=== PATIENT | female | born 1985 | race Caucasian/White ===

== ENCOUNTER 2017-10-23 09:45 | Outpatient (CLI) | payer OTHER ==
[2017-10-23 11:11] LABS: HGB - HEMOGLOBIN 11.3 g/dL (12.0-16.0); MEAN CORPUSCULAR HEMOGLOBIN 30.4 pg (27.0-31.0); MEAN CORPUSCULAR HGB CONC 34.3 g/dL (32.0-36.0); MEAN CORPUSCULAR VOLUME 88.6 fL (81.0-99.0); MEAN PLATELET VOLUME 8.2 fL (7.9-10.8); RED BLOOD COUNT 3.71 10^6/uL (4.20-5.40); RED CELL DISTRIBUTION WIDTH 12.7 % (12.0-15.0); WHITE BLOOD COUNT 16.1 x10^3/uL (4.8-10.8)
== END 2017-10-23 09:46 | disposition home or self-care (01) ==
LOC: LAB 09:45
PROVIDERS: ATTEND Obstetrics & Gynecology
DX: Z34.90 Encounter for supervision of normal pregnancy, unspecified, unspecified trimester (principal); Z34.81 Encounter for supervision of other normal pregnancy, first trimester
CPT/HCPCS: 36415; 82950; 86850; 86900; 86901

== ENCOUNTER 2017-10-24 12:15 | Outpatient (CLI) | payer OTHER ==
--- NOTE | 2017-10-24 17:52 | Ultrasound Report ---
ANATOMIC SCREEN: 10/24/2017 No comparison. INDICATION: Anatomic screening. TECHNIQUE: OB ultrasound single intrauterine transabdominal approach. FINDINGS: Estimated gestational age by patient stated LMP, 27 weeks 4 days with ANDRE 01/19/2018. Estimated gestational age via current ultrasound, 26 weeks 5 days with ANDRE 01/25/2018. Cardiac activity 149 beats per minute. movement is visualized. Presentation cephalic. Placental position anterior without previa. Three-vessel cord with central insertion on the placenta. Amniotic fluid index 9.8. BPD: 6.6 cm, 26 weeks 5 days. HC: 24.3 cm, 26 weeks 3 days. AC: 23.0, 27 weeks 3 days. FL: 4.8 cm, 26 weeks 3 days. Estimated weight 997 grams, 39th percentile. The face and right ventricular outflow tract are not well seen on this exam. There is a thin band of tissue about the posterior neck which is nonspecific. The wrists also remain flexed during the exam. No other anomalies are demonstrated. The uterus and maternal adnexa appear unremarkable in other regards. However, there is fluid versus a mucus plug in the cervix. It is somewhat reassuring that the cervix remains 4.3 cm. IMPRESSION: 1. SINGLE INTRAUTERINE WITH ESTIMATED AGE 26 WEEKS 5 DAYS BY TODAY'S ULTRASOUND. 2. THERE IS QUESTIONABLE FLUID IN THE CERVIX. RECOMMEND CLINICAL EXAMINATION TO EXCLUDE AMNIOTIC FLUID. 3. QUESTIONABLE ANATOMIC ANOMALIES. RECOMMEND MATERNAL MEDICINE CONSULT. NOTE: These findings were discussed in detail with Dr. Ansari on the day of the examination, 10/24/2017 at 3:30 p.m., and he expressed understanding. TD: 10/24/2017 17:51 [facility]
== END 2017-10-24 12:16 | disposition home or self-care (01) ==
LOC: DI 12:15
PROVIDERS: ATTEND Obstetrics & Gynecology
DX: Z36.9 Encounter for antenatal screening, unspecified (principal); Z3A.26 26 weeks gestation of pregnancy
CPT/HCPCS: 76811

== ENCOUNTER 2017-11-25 10:17 | Outpatient (CLI) | payer OTHER ==
[2017-11-25 17:02] LABS: BILIRUBIN,URINE NEGATIVE (NEGATIVE); CLARITY,URINE SL. CLOUDY (CLEAR); GLUCOSE, URINE (UA) NEGATIVE (NEGATIVE); KETONES,URINE (UA) NEGATIVE (NEGATIVE); LEUKOCYTE ESTERASE, URINE LARGE (NEGATIVE); NITRITE,URINE NEGATIVE (NEGATIVE); OCCULT BLOOD,URINE TRACE-LYSE (NEGATIVE); PROTEIN,URINE NEGATIVE (NEGATIVE); UROBILINOGEN,URINE 0.2 (NORMAL) E.U./dL (NORMAL)
[2017-11-25 17:27] LABS: AMORPHOUS SEDIMENT,UR Few /LPF; BACTERIA,URINE Few /HPF (None Seen); RBC,URINE 0-5 /HPF (0-5); SQUAMOUS EPITHELIAL CELL,UR RARE Squamous (<= Few)
== END 2017-11-25 10:18 | disposition home or self-care (01) ==
LOC: LAB.R 10:17
PROVIDERS: ATTEND Obstetrics & Gynecology
DX: R82.99 Other abnormal findings in urine (principal)
CPT/HCPCS: 81001; 87086

== ENCOUNTER 2017-12-08 08:39 | Outpatient (CLI) | END 2017-12-08 08:40 | disposition home or self-care (01) ==

== ENCOUNTER 2017-12-12 08:00 | Outpatient (CLI) | payer OTHER | END 2017-12-12 08:01 | disposition home or self-care (01) | LOC: LAB.R 08:00 | PROVIDERS: ATTEND Obstetrics & Gynecology | DX: N76.0 Acute vaginitis (principal) | CPT/HCPCS: 87480; 87510; 87660 ==

== ENCOUNTER 2017-12-25 08:00 | Outpatient (CLI) | payer OTHER | END 2017-12-25 08:01 | disposition home or self-care (01) | LOC: LAB.R 08:00 | PROVIDERS: ATTEND Obstetrics & Gynecology | DX: Z36.89 Encounter for other specified antenatal screening (principal) | CPT/HCPCS: 87081 ==

== ENCOUNTER 2018-01-05 09:26 | Outpatient (CLI) | payer OTHER ==
--- NOTE | 2018-01-05 14:45 | Ultrasound Report ---
Procedure Date: 01/05/2018 Accession Number: [id number] / [id number] Procedure: US - OB F/U or Repeat CPT Code: FULL RESULT: EXAM: OB F/U or Repeat DATE: 01/05/2018 10:37 AM CLINICAL HISTORY: ENCTR FOR SCREENING FOR GROWTH RET TECHNIQUE: Real-time scanning was performed with manufacturer representative static images obtained. COMPARISON: None Reported last menstrual period is April 14. Clinical Age: 37 weeks 1 days US Age: 38 weeks 0 days EFW Hadlock: 3369 grams EFW % Hadlock: 62% Heart Rate: 159 bpm EDC: 01/25/2018 US EDC: 01/19/2018 BPD Hadlock: 38 weeks 1 days; Mean mm 94 HC Hadlock: 38 weeks 4 days; Mean mm 337 AC Hadlock: 38 weeks 0 days; Mean mm 341 FL Hadlock: 37 weeks 4 days; Mean mm 74 Presentation: Cephalic Placental Location: Anterior Cervical Length: 3.0 cm Amniotic Fluid: EDUARDO 12.2 cm; MVP 4.7 cm FINDINGS: There is a single live intrauterine gestation in cephalic presentation with an anterior placenta and no evidence of previa. heart rate is 159 beats per minutes. The sonographic age based on today's exam is 38 weeks and 0 days. The estimated weight by Hadlock is 3369 g, 62nd percentile. IMPRESSION: Single viable intrauterine gestation with expected growth.
== END 2018-01-05 09:27 | disposition home or self-care (01) ==
LOC: DI 09:26
PROVIDERS: ATTEND Obstetrics & Gynecology
DX: Z36.4 Encounter for antenatal screening for fetal growth retardation (principal)
CPT/HCPCS: 76816

== ENCOUNTER 2018-01-24 09:45 | Inpatient (IN) | payer OTHER ==
[2018-01-24] MEDS ORDERED: fentaNYL 100 MCG/2 ML VIAL IVP PRN (12:50)
[2018-01-24] MEDS ORDERED: ONDANSETRON 4 MG/2 ML VIAL IVP PRN ×2 (12:50→21:16)
[2018-01-24] MEDS ORDERED: SODIUM CHLORIDE FLUSH 0.9% 10 ML SYRINGE IVP PRN (12:50)
[2018-01-24] MEDS ORDERED: PENICILLIN G POTASSIUM 5,000,000 UNIT in SODIUM CHLORIDE 0.9% MINIBAG 100 ML IV ONE (13:30)
[2018-01-24] MEDS: SODIUM CHLORIDE FLUSH 0.9% 10 ML SYRINGE IVP SCH ×3 (13:53→20:58)
[2018-01-24] MEDS: LACTATED RINGERS 1,000 ML IV SCH ×2 (13:54→20:22)
[2018-01-24 14:01] LABS: BASOPHILS # (AUTO) 0.1 10^3/uL (0.0-0.1); BASOPHILS % (AUTO) 0.6 %; EOSINOPHILS # (AUTO) 0.1 10^3/uL (0.0-0.7); EOSINOPHILS % (AUTO) 0.5 %; HGB - HEMOGLOBIN 12.8 g/dL (12.0-16.0); LYMPHOCYTES # (AUTO) 1.6 10^3/uL (1.5-3.5); LYMPHOCYTES % (AUTO) 8.4 %; MEAN CORPUSCULAR HEMOGLOBIN 29.8 pg (27.0-31.0); MEAN CORPUSCULAR HGB CONC 34.9 g/dL (32.0-36.0); MEAN CORPUSCULAR VOLUME 85.5 fL (81.0-99.0); MEAN PLATELET VOLUME 9.4 fL (7.9-10.8); MONOCYTES # (AUTO) 1.1 10^3/uL (0.0-1.0); MONOCYTES % (AUTO) 5.9 %; NEUTROPHILS # (AUTO) 16.1 10^3/uL (1.5-6.6); NEUTROPHILS % (AUTO) 84.6 %; PLT - PLATELET COUNT 253 10^3/uL (130-450); RED BLOOD COUNT 4.29 10^6/uL (4.20-5.40); RED CELL DISTRIBUTION WIDTH 13.5 % (12.0-15.0)
[2018-01-24 14:19] LABS: RBC MORPHOLOGY (MULTIPLE) 1+ ANISOCYTOSIS (NORMAL)
[2018-01-24] MEDS ORDERED: OXYTOCIN/SODIUM CHLORIDE 500 ML IV SCH (17:00)
[2018-01-24] MEDS: PENICILLIN G POTASSIUM 2,500,000 UNIT in SODIUM CHLORIDE 0.9% 100ML 100 ML IV SCH ×2 (17:03→21:17)
--- NOTE | 2018-01-24 17:13 | PROVIDER PROGRESS NOTE ---
Labor Progress Note - Uterine Monitoring Uterine Monitoring Mode: positive: External toco Contraction Frequency (min/apart): 4-6 min Contraction Intensity: positive: Moderate Uterine Resting Tone: positive: Soft - Monitoring Monitor Mode: positive: External ultrasound Heart Rate Baseline: 130-40 Heart Rate Variability: positive: Moderate (6-25 bmp) Accelerations: positive: Present, 15x15 Decelerations: positive: Early Strip Review: positive: Category I - Vaginal Exam Dilation (in cm): 6 Effacement (%): 100% Station: -1 Cervical Position: Midposition - Labor Progress Note Labor Progress Note/Additional Text: Pt is progressing well. GBS positive receiving second dose of PCN. will AROM when PCN in. will hold Pit as she is making excellent progress.
--- NOTE | 2018-01-24 17:18 | HISTORY & PHYSICAL EXAMINATION ---
Admit History - Instructions [place]/Slash: -Left hand click circles element as positive or present. -Right hand click slashes element as negative or not present. - Visit Reason Visit Reason: Contractions - : 1 Parity: 0 Premature: 0 Ectopic: 0 : 0 Care: positive: [facility] (Transfer from [facility] at about 19.1 weeks), CORNELL- Whndbe Risk/History: positive: None Complications This : positive: None Smoking Status: Never smoker - Mother's Labs Mother's Blood Type: positive: O Mother's RH: positive: Positive GBS: positive: Group B Strep Positive Rubella Status: positive: Non-immune Review of Systems - Constitutional Constitutional: denies: Fatigue - Eyes Eyes: denies: Pain - Ears, Nose & Throat Ears, Nose & Throat: denies: Ear pain - Cardiovascular Cariovascular: denies: Irregular heart rate - Respiratory Respiratory: denies: Cough - Gastrointestinal Gastrointestinal: denies: Abdominal pain - Genitourinary Genitourinary: denies: Dysuria - Musculoskeletal Musculoskeletal: denies: Muscle pain - Integumentary Integumentary: denies: Rash - Neurological Neurological: denies: General weakness - Psychiatric Psychiatric: denies: Depression - Endocrine Endocrine: denies: Polyuria Physical - Abdominal Exam Vital Signs: Temp Pulse Resp BP Pulse Ox 36.8 C 98 20 125/80 100 01/24/18 13:00 01/24/18 13:00 01/24/18 13:00 01/24/18 13:00 01/24/18 13:00 Contraction Intensity: positive: Moderate Uterine Resting Tone: positive: Soft - Monitoring Strip Review: positive: Category I - Presentation Presentation: positive: Vertex - Vaginal Exam Membranes: positive: Membranes intact Dilation (in cm): 3 on admission Station: positive: -2 Cervical Position: positive: Posterior (Pt was initaly 2 cm walked for 2 hours) Plan for Labor - Plan For Labor I expect patient to be DC'd or transferred within 96 hours.: Yes Plan for Labor: Pt is a 32 yo EDC 01/19/2018, 40.5 weeks. GBS positive Rhubella nonimmune in labor. will give two doses of PCM then AROM.
--- NOTE | 2018-01-24 18:19 | PROVIDER PROGRESS NOTE ---
Labor Progress Note - Uterine Monitoring Uterine Monitoring Mode: positive: External toco Contraction Frequency (min/apart): 5-6 Contraction Intensity: positive: Strong Uterine Resting Tone: positive: Soft - Monitoring Monitor Mode: positive: External ultrasound Heart Rate Baseline: 150 Heart Rate Variability: positive: Moderate (6-25 bmp) Accelerations: positive: Present, 15x15 (Responded to amniohook) Decelerations: positive: Early Strip Review: positive: Category I - Vaginal Exam Dilation (in cm): 7 Effacement (%): 100% Station: -1 - Labor Progress Note Labor Progress Note/Additional Text: Attempted AROM. head well applied and thus minimal fluid. pt may have epidural PRN.
[2018-01-24] MEDS ORDERED: fent/BUPIV 2 MCG/0.125% 250 ML EP ONE (20:00)
[2018-01-24] MEDS ORDERED: NALBUPHINE 10 MG/ML AMP IVP PRN (21:16)
[2018-01-24] MEDS ORDERED: fent/BUPIV 2 MCG/0.125% 250 ML EP PRN (21:16)
[2018-01-24] MEDS ORDERED: LACTATED RINGERS 500 ML IV ONE (21:16)
[2018-01-24] MEDS ORDERED: NALOXONE 0.4 MG/ML VIAL IVP PRN (21:16)
[2018-01-24] MEDS ORDERED: ePHEDrine 50 MG/ML VIAL IVP PRN (21:16)
[2018-01-24] MEDS ORDERED: METOCLOPRAMIDE 10 MG/2 ML VIAL IVP PRN (21:16)
[2018-01-24] MEDS ORDERED: diphenhydrAMINE INJ 50 MG/ML VIAL IVP PRN (21:16)
[2018-01-25] MEDS: LACTATED RINGERS 1,000 ML IV SCH (01:23)
[2018-01-25] MEDS: PENICILLIN G POTASSIUM 2,500,000 UNIT in SODIUM CHLORIDE 0.9% 100ML 100 ML IV SCH (01:24)
[2018-01-25] MEDS ORDERED: LIDOCAINE 1% 50 ML MDV ONE (01:56)
--- NOTE | 2018-01-25 02:46 | DELIVERY NOTE ---
Delivery Note - Labor Labor: positive: Spontaneous, Augmented by oxytocin - Delivery Method Delivery Method: positive: Spontaneous vaginal delivery - Presentation Presentation: positive: Vertex, WAI - right occiput anterior - Nuchal Cord Nuchal Cord: positive: None - Anesthetic Anesthetic Type: Anesthetic: positive: Lidocaine - 1% plain Volume: positive: Other (10 ml) - Amniotic Fluid Description Amniotic Fluid Description: positive: Clear - Episiotomy Type Episiotomy Type: positive: None - Laceration Laceration: positive: 2nd degree - Suture Suture Type: positive: Vicryl Suture Size: positive: 3-0 - Delivery Outcome Delivery Outcome: positive: Livebirth - : positive: Placed in direct skin contact with mother, Bulb syringe, Stimulated, Mead used sex: positive: Female - Cord Cord: positive: 3 vessels - Placenta Placenta: positive: Intact, Spontaneous - Estimated Blood Loss Estimated Blood Loss (in cc): 150 - Post Delivery Events Post Delivery Events: positive: No post delivery events - Delivery Comments (Free Text/Narrative) Delivery Comments (Free Text/Narrative): Pt started with Nitrous for analgesia switched to Epidural for labor, reached complete at 2223. Allowed to labor down and started pushing at 0013. Following a 1 hour 58 min second stage a live female was delivered at 0211 over a second degree midline laceration. Baby was placed on mothers chest and stimulated. Talita had apgars of 9/10 and weighed 6 lb 12 oz. Placenta followed at 0217 inspected and noted to be complete. Repare was effected with local and 3-0 vicril. EBL 150 ml.
[2018-01-25] MEDS ORDERED: HYDROCORTISONE/PRAMOXINE 10 GM PR PRN (02:53)
[2018-01-25] MEDS ORDERED: ACETAMINOPHEN 325 MG TABLET PO PRN (02:53)
[2018-01-25] MEDS ORDERED: WITCH HAZEL/GLYCERIN 1 EACH MED..PAD TOP PRN (02:53)
[2018-01-25] MEDS ORDERED: HYDROCORTISONE 1% CREAM 28 GM TUBE PR PRN (02:53)
[2018-01-25] MEDS ORDERED: diphenhydrAMINE 25 MG CAPSULE PO PRN (02:53)
[2018-01-25] MEDS ORDERED: OXYTOCIN/SODIUM CHLORIDE 250 ML IV ONE (02:53)
[2018-01-25] MEDS ORDERED: MEASLES,MUMPS & RUBELLA VACC 0.5 ML VIAL SUBQ ONE (02:53)
[2018-01-25] MEDS ORDERED: oxyCODONE 5 MG TABLET PO PRN (02:53)
[2018-01-25] MEDS ORDERED: LACTATED RINGERS 1,000 ML IV SCH (03:00)
[2018-01-25] MEDS: IBUPROFEN 800 MG TABLET PO SCH ×4 (03:18→21:41)
--- NOTE | 2018-01-25 15:02 | PROVIDER PROGRESS NOTE ---
Subjective - Prog Note Date Prog Note Date: 01/25/18 Prog Note Time: 15:01 - Subjective Pt reports feeling: Improved (Pain 0/10. voiding and regular diet. Breast feeding) Objective - Vital Signs/Intake & Output Reviewed Vital Signs: Yes Vital Signs: Vital Signs x48h Temp Pulse Resp BP Pulse Ox 01/25/18 10:00 36.3 C L 74 20 120/75 100 01/25/18 08:00 36.8 C 68 18 104/65 100 Intake & Output: Intake & Output 01/22/18 01/23/18 01/24/18 01/25/18 23:59 23:59 23:59 23:59 Intake Total 592.5 3650 Output Total 300 350 Balance 292.5 3300 - Objective General Appearance: positive: No acute distress, Alert Respiratory: positive: Chest non-tender, No respiratory distress, Breath sounds nml Cardiovascular: positive: Regular rate & rhythm, No murmur, No gallop Abdomen: positive: Non-tender, No organomegaly, Mass (U-1). negative: Tenderness Extremities: negative: Calf tenderness, Archana's sign/cords Neurologic/Psychiatric: positive: Oriented x3, Mood/affect nml - Lab Results Fish Bones: 01/24/18 13:55 Assessment/Plan - Problem List (1) (spontaneous vaginal delivery) Impression: less than 24 hours. Progressing well.
[2018-01-26] MEDS: IBUPROFEN 800 MG TABLET PO SCH ×4 (02:51→21:50)
--- NOTE | 2018-01-26 14:44 | PROVIDER PROGRESS NOTE ---
Subjective - Prog Note Date Prog Note Date: 01/26/18 Prog Note Time: 14:41 - Subjective Pt reports feeling: Improved (Pain 0/10, voiding, breast feeding.) Objective - Vital Signs/Intake & Output Reviewed Vital Signs: Yes Vital Signs: Vital Signs x48h Temp Pulse Pulse Resp BP Pulse Ox 01/26/18 11:27 36.7 C 73 18 116/69 99 01/26/18 07:45 36.8 C 74 18 117/69 99 Intake & Output: Intake & Output 01/23/18 01/24/18 01/25/18 01/26/18 23:59 23:59 23:59 23:59 Intake Total 592.5 4350 360 Output Total 300 350 Balance 292.5 4000 360 - Objective General Appearance: positive: No acute distress, Alert Abdomen: positive: Non-tender, No distention, Mass (u-2) - Lab Results Fish Bones: 01/24/18 13:55 Assessment/Plan - Problem List (1) (spontaneous vaginal delivery) Impression: PPD # 1 progressing Continue care
[2018-01-27] MEDS: IBUPROFEN 800 MG TABLET PO SCH ×3 (04:51→16:28)
[2018-01-27] MEDS: SODIUM CHLORIDE FLUSH 0.9% 10 ML SYRINGE IVP SCH ×2 (07:43→10:44)
--- NOTE | 2018-01-27 09:14 | Discharge Plan ---
Discharge Plan Disposition: 01 Home, Self Care Condition: Good Diet: Regular Activity Restrictions: Activity as Tolerated Shower Restrictions: No Driving Restrictions: No Weight Bearing: Full Weight No Smoking: If you smoke, Please STOP! Call for help. Follow-up with: Marvel Argueta MD [Provider Admit Priv/Credential] -
--- NOTE | 2018-01-27 09:17 | PROVIDER PROGRESS NOTE ---
Subjective - Prog Note Date Prog Note Date: 01/27/18 Prog Note Time: 09:00 - Subjective Pt reports feeling: Improved Subjective: Morning discharge visit patient feels well and is nursing without difficulty. There is no problems with peroneal stitches. She micturates and defecates well. Mild non-foul lochia. Physical examination finds the fundus firm and nontender. Reviewed warning sign and callback instructions including fever, excessive bleeding, calf pain, and abdominal pain outside of contractions. She will be seen by Dr. Duron in 2 weeks. Discharge medications [id number] Motrin Complete discharge summary dictated Objective - Vital Signs/Intake & Output Vital Signs: Vital Signs x48h Temp Pulse Resp BP Pulse Ox 01/27/18 05:13 97.9 F 62 16 115/73 100 Intake & Output: Intake & Output 01/24/18 01/25/18 01/26/18 01/27/18 23:59 23:59 23:59 23:59 Intake Total 592.5 4350 360 Output Total 300 350 Balance 292.5 4000 360 - Lab Results Fish Bones: 01/24/18 13:55
--- NOTE | 2018-01-27 10:37 | DISCHARGE SUMMARY ---
Physician: Marvel Ansari MD DATE OF ADMISSION: 01/24/2018 DATE OF DISCHARGE: 01/27/2018 DIAGNOSIS: Term , active labor. PROCEDURE: Normal vaginal delivery of a living female (Dr. Argueta). HISTORY OF PRESENT ILLNESS: The patient is a 32-year-old primigravida who received care at [facility]. Blood type is O positive, antibody negative, GBS positive, rubella nonimmune, who presented in labor with a category 1 strip. Initial evaluation found her to be 3 cm, -2 station and posterior. Refer Dr. Argueta's H&P. HOSPITAL COURSE: Patient was admitted, and GBS antibiotic protocol was started. She smoothly progressed to completion at 2023 hours, and delivered at 0211 hours on 01/26/2018. A living female was born, weighing 6 pounds 12 ounces with Apgars of 9/9. There was a minor midline second-degree laceration and was uneventfully closed. Total blood loss was [address] Argueta' s notes. The patient rested and recovered. She received MMR vaccine. RhoGAM was not needed. Greater than two doses of penicillin were given. On the morning of day #1, the patient felt well. She had normal activity. She desired discharge. There was no difficulty with nursing noted. She was discharged home with instructions and warning sign and callback. Throughout the hospital course, the patient did well on Motrin alone, and did not require any narcotics. FOLLOWUP: Followup will be in [address] Argueta. DISCHARGE MEDICATIONS 1. vitamins and iron. 2. [id number] Motrin for pain. TD: 01/27/2018 09:18 [facility]
[2018-01-27 15:57] VITALS: BP 126/75
[2018-01-27] MEDS ORDERED: MEASLES,MUMPS & RUBELLA VACC 0.5 ML VIAL SUBQ ONE (20:00)
--- NOTE | 2018-01-28 23:32 | Labor Flowsheet ---
Labor Flowsheet Datetime Report Generated by CPN: 01/27/2018 20:28 Datetime: 01/27/2018 15:37 VITAL SIGNS NBP Sys/Kelin/Mean (mmHg): 126 : 75 : 83 Pulse: 75 Datetime: 01/26/2018 18:24 SpO2 (%): 100 Datetime: 01/25/2018 02:17 Stage of : Datetime: 01/25/2018 02:11 UTERINE ACTIVITY Monitor Mode: External Frequency (min): 2-4 Quality: Strong Duration (sec): 50-100 Pattern: Normal: <= 5 Contractions in 10 Minutes Resting Tone (Palpate): Relaxed ASSESSMENT A Monitor Mode: Telemetry FHR Baseline Rate : 135 Variability: Moderate 6-25 bpm Accelerations: 15X15 Decelerations: Early; Variable Category: Category II Datetime: 01/25/2018 02:09 LaborFlag: Labor Datetime: 01/25/2018 01:26 MEDICATIONS Antibiotics: Penicillin IV (Units) @ 2.5M Datetime: 01/25/2018 00:37 Temperature (C): 37.6 Datetime: 01/25/2018 00:20 COMMUNICATION Communication: Provider at Bedside Notification Reason: Status; Labor Status Communication Comments: Dr. Giem here Datetime: 01/24/2018 23:32 Pain Presence: None/Denies Datetime: 01/24/2018 23:29 Patient Position/Activity: Right Lateral Patient Care Comments: pillows between legs Datetime: 01/24/2018 23:25 Hygiene: Monique Care; Underpad Changed; Peripad Changed Datetime: 01/24/2018 23:20 I/O Interventions: Straight Cath (ml) @ 300 Datetime: 01/24/2018 23:00 Oxygen Amount (LPM): 10 Oxygen Method: Non-Rebreather Datetime: 01/24/2018 22:36 Provider Notified (Name): Dr Giem Datetime: 01/24/2018 22:33 VAGINAL EXAM Dilatation (cm): 10.0 Effacement (%): 100 Station: 0 Exam by: O'Phillips RN and Spear RNC Vaginal Bleeding: Normal Show Cervix, Consistency: Soft Datetime: 01/24/2018 21:10 Anesthesia Level Check: T8- Ribs Datetime: 01/24/2018 20:58 PAIN Pain Scale: 0 Datetime: 01/24/2018 20:51 Epidural Procedure Other: Single Dose Datetime: 01/24/2018 20:48 Epidural Procedure: Test Dose Anesthesia Comments: bolus Datetime: 01/24/2018 20:25 PROCEDURE TIME OUT Procedure Verify: Correct Patient Position ANESTHESIA Anesthesia Plans: Epidural Epidural Positioning: Sitting Datetime: 01/24/2018 20:20 Medication Comments: Nitrous off Datetime: 01/24/2018 20:12 Monitor Interventions for UA: [place] Adjusted Datetime: 01/24/2018 19:53 Vaginal Exam Comments: 2 cm anterior lip Datetime: 01/24/2018 19:32 Nausea/Vomiting: Present Datetime: 01/24/2018 19:29 Pain Type: Cramping; Contraction Pain Location: Abdomen Pain Coping: Breathing Through Contractions Pain Assessment Comments: using nitrous MATERNAL ASSESSMENT Level of Consciousness: Fully Conscious Headache: Denies RUQ Epigastric Pain: Denies Comfort Measures: Breathing/Relaxation Datetime: 01/24/2018 19:27 Respirations: 16 Datetime: 01/24/2018 18:29 Pain Relief Measures: Comfort Measures Datetime: 01/24/2018 18:15 Membrane Status: Ruptured Membranes Rupture Method: Artificial Amniotic Fluid Color: Clear Amniotic Fluid Amount: Scant Amniotic Fluid Odor: Normal Membrane Comments: AROM of scant fluid Datetime: 01/24/2018 17:38 Contraction Comments: pt gettimg good relief with nitrous oxide breathing Datetime: 01/24/2018 17:01 Cervix, Position: Anterior Datetime: 01/24/2018 14:10 Membranes Ruptured Date/Time: 01/24/2018 18:15 Datetime: 01/24/2018 14:05 Pain Goal: 9 Datetime: 01/24/2018 13:55 PATIENT CARE IV/Blood Work: New IV Bag Hung; IV Bag Number @
== END 2018-01-27 18:45 | disposition home or self-care (01) | DRG 775 ==
LOC: WFO 09:45 → FBP 09:46 → WFO 12:39 → UNDOADMOB 12:40 → FBP 12:40 → INTOOBSV 12:50 → OBSVTOIN 12:50 → FBP 17:00 → OBSVTOIN 17:00
PROVIDERS: ADMIT Obstetrics & Gynecology; ATTEND Obstetrics & Gynecology
PROC: 10E0XZZ Delivery of Products of Conception, External Approach (ICD-10-PCS; principal; 2018-01-25)
PROC: 0KQM0ZZ Repair Perineum Muscle, Open Approach (ICD-10-PCS; 2018-01-25)
PROC: 10907ZC Drainage of Amniotic Fluid, Therapeutic from Products of Conception, Via Natural or Artificial Opening (ICD-10-PCS; 2018-01-25)
PROC: 3E033VJ Introduction of Other Hormone into Peripheral Vein, Percutaneous Approach (ICD-10-PCS; 2018-01-25)
DX: O99.824 Streptococcus B carrier state complicating childbirth (principal); Z37.0 Single live birth; O70.1 Second degree perineal laceration during delivery; Z3A.40 40 weeks gestation of pregnancy; Z23 Encounter for immunization
CPT/HCPCS: 36415; 85025; 96361; 96365; 99213

== ENCOUNTER 2020-09-07 07:42 | Outpatient (CLI) | payer OTHER ==
[2020-09-07 09:06] LABS: HCT - HEMATOCRIT 34.6 % (37.0-47.0); HGB - HEMOGLOBIN 11.5 g/dL (12.0-16.0); MEAN CORPUSCULAR HEMOGLOBIN 30.3 pg (27.0-31.0); MEAN CORPUSCULAR HGB CONC 33.2 g/dL (32.0-36.0); MEAN CORPUSCULAR VOLUME 91.3 fL (81.0-99.0); MEAN PLATELET VOLUME 9.7 fL (7.9-10.8); RED BLOOD COUNT 3.79 10^6/uL (4.20-5.40); RED CELL DISTRIBUTION WIDTH 12.8 % (12.0-15.0); WHITE BLOOD COUNT 11.5 x10^3/uL (4.8-10.8)
== END 2020-09-07 07:43 | disposition home or self-care (01) ==
LOC: LAB 07:42
PROVIDERS: ATTEND Advanced Practice Midwife
DX: Z34.90 Encounter for supervision of normal pregnancy, unspecified, unspecified trimester (principal); Z36.89 Encounter for other specified antenatal screening
CPT/HCPCS: 36415; 82950; 85027; 86850

== ENCOUNTER 2020-10-30 11:46 | Outpatient (CLI) | payer OTHER ==
[2020-10-30 13:38] LABS: BILIRUBIN,URINE NEGATIVE (NEGATIVE); GLUCOSE, URINE (UA) NEGATIVE (NEGATIVE); KETONES,URINE (UA) 15 mg/dL (NEGATIVE); LEUKOCYTE ESTERASE, URINE NEGATIVE (NEGATIVE); NITRITE,URINE NEGATIVE (NEGATIVE); OCCULT BLOOD,URINE NEGATIVE (NEGATIVE); PROTEIN,URINE NEGATIVE (NEGATIVE); UROBILINOGEN,URINE 0.2 (NORMAL) E.U./dL (NORMAL)
[2020-10-30 13:48] VITALS: BP 124/72
[2020-10-30 13:50] LABS: CLARITY,URINE CLEAR (CLEAR)
[2020-10-30 13:59] LABS: RBC,URINE 0-5 /HPF (0-5); WBC,URINE 0-3 /HPF (0-5)
[2020-10-30 14:00] LABS: BACTERIA,URINE Rare /HPF (None Seen); SQUAMOUS EPITHELIAL CELL,UR RARE Squamous (<= Few)
--- NOTE | 2020-10-30 20:28 | PROVIDER PROGRESS NOTE ---
- HPI Chief Complaint: Labor Current : Current EDU 10/30/20 Gestation 33 Weeks and 9 Days 2 Para 1 Vital Signs Temperature 97.5 F L 10/30/20 12:24 Heart Rate 85 10/30/20 12:24 Respiratory Rate 18 10/30/20 12:24 Blood Pressure 124/72 10/30/20 12:24 Temperature 97.5 F L 10/30/20 12:24 Heart Rate 85 10/30/20 12:24 Respiratory Rate 18 10/30/20 12:24 Blood Pressure 124/72 10/30/20 12:24 O2 Saturation - Exam GEN: NAD HEAD: NCAT EYES: No scleral icterus or conjunctival injection CV: RRR RESP: CTAB, normal effort ABD: gravid, S&NT/ND PSYCH: appropriate affect NEURO: alert and oriented, normal gait and coordination EXT: WWP SVE: closed/long/high on RN exam EFM: 135 mod jason 15x15 accels no decels TOCO: irritable - Procedures OB Procedure Performed: NST Diagnosis/Indication for NST: labor NST Procedure: EFM 135 mod jason 15x15 accesl no decels--. Cat I, RRNST Service Date of procedure: 10/30/20 Procedure Details: Patient is a 35 yo at 33+9 wga here with pelvic pain Reports pain across her pubic bone, non-rhythmic. No contraction felt in back of abdomen. No LOF or VB. Does not recall feeling symptoms with prior . No Dysuria. No recent IC. [place] in [employer] ROS: As per HPI, otherwise remaining systems are negative. PMH: none PSH: wisdom teeth extraction, cyst removal from neck OB HX: x1 FH: Mother with thyroid disorder Brother: DM GM: breast cancer EXAM: See above A/P: Pelvic pain in UA wnl FFN neg SVE reassuring Low concern for labor Low concern for UTI Likely pubic symphacitis Recommend use of belly band to relieve pressure on pubic bone FU with routine PNC DX: IUP at 33+9 wga False labor Pubic symphasitis
== END 2020-10-30 14:15 | disposition home or self-care (01) ==
LOC: WFO 11:46 → FBP 11:48 → WFO 14:15
PROVIDERS: ATTEND Nurse Practitioner Obstetrics & Gynecology
DX: O47.03 False labor before 37 completed weeks of gestation, third trimester (principal); O99.891 Other specified diseases and conditions complicating pregnancy; M25.80 Other specified joint disorders, unspecified joint; Z3A.33 33 weeks gestation of pregnancy
CPT/HCPCS: 36415; 81001; 81003; 82731; 87086; 87491; 87591; 87661; 87797; 87801; 99214

== ENCOUNTER 2020-11-23 08:00 | Outpatient (CLI) | payer OTHER | END 2020-11-23 23:59 | disposition home or self-care (01) | LOC: LAB.WC 08:00 | PROVIDERS: ATTEND Obstetrics & Gynecology | DX: Z36.85 Encounter for antenatal screening for Streptococcus B (principal) | CPT/HCPCS: 87797 ==

== ENCOUNTER 2020-12-08 09:56 | Outpatient (CLI) | payer OTHER ==
[2020-12-08 10:23] VITALS: BP 125/77
[2020-12-08 10:53] LABS: RUPTURE OF MEMBRANES PLUS POSITIVE (NEGATIVE)
--- NOTE | 2020-12-08 11:43 | PROVIDER PROGRESS NOTE ---
- HPI Chief Complaint: Leakage of vaginal fluid Current : Current EDU 12/12/20 Gestation 39 Weeks and 3 Days 2 Para 1 Vital Signs Temperature 98.3 F 12/08/20 10:20 Heart Rate 101 H 12/08/20 10:20 Respiratory Rate 18 12/08/20 10:20 Blood Pressure 125/77 12/08/20 10:20 O2 Saturation 98 12/08/20 10:20 Temperature 98.3 F 12/08/20 10:20 Heart Rate 101 H 12/08/20 10:20 Respiratory Rate 18 12/08/20 10:20 Blood Pressure 125/77 12/08/20 10:20 O2 Saturation 98 12/08/20 10:20 35yo at 39 3/7 weeks. Patient awoke this am and had wetness on her underwear. Patient reports good movement. Patient is feeling irregular contractions since last evening. Patient denies vaginal bleeding. Patient is not aware of any gushes of fluid or fluid coming out of the vagina. - Exam O- 127/77., temp is 98.7 Chest: Clear to auscultation. Good breath sounds in all [place]. Heart: RRR without murmur or gallop. Abdomen: Soft, gravid, non-tender to palpation. Extremities: No edema, no calf tenderness. Sterile speculum exam. V/V: No lesions, no erythema, some white discharge is present. Cervical mucous is seen. No pooling of fluid. Some very small amount of fluid seen and sampled and placed on two separate slides for evaluation. CX: Loose 1cn/50%/-3, Soft, Posterior. Monitor/NST: Baseline 140 with moderate variability. Accelerations are present. 15X15 present. Irregular contractions are present. Patient is not feeling all contractions. No decelerations are present. Initially heart rate baseline was 150-160 and patient given oral hydration. heart rate decreased to baseline of 140. Category I Monitor strip. Meets criteria for reactive NST. Rom plus was positive. Sterile speculum exam performed to collect samples for ferning. No ferning seen on either of the two slides prepared. A-IUP 39 3/7 with Intact membranes. P- Discharge to home with Labor precautions. Follow-up in clinic as scheduled next week if she does not go into labor. - Plan Plan: Discharge to home with labor precautions.
== END 2020-12-08 11:36 | disposition home or self-care (01) ==
LOC: WFO 09:56 → FBP 09:57 → WFO 11:36
PROVIDERS: ATTEND Obstetrics & Gynecology
DX: Z34.83 Encounter for supervision of other normal pregnancy, third trimester (principal); Z3A.39 39 weeks gestation of pregnancy
CPT/HCPCS: 84112; 99214

== ENCOUNTER 2021-12-20 22:27 | Emergency (ER) | payer OTHER ==
[2021-12-21 02:06] LABS: RAPID STREP SCREEN Negative (Negative)
--- NOTE | 2021-12-21 02:11 | ED Physician Documentation ---
History of Present Illness - Stated complaint Stated Complaint: RASH,BODY ACHES,SORE THROAT - Chief complaint Chief Complaint: Heent - History obtained from History obtained from: Patient - Additonal information Additional information: Patient is a 36-year-old female with no significant past medical history presenting for evaluation of rash, sore throat and body aches that been present since yesterday. Her is also ill with a viral syndrome And he was seen earlier today in the emergency department with a negative COVID test. 2 young daughters are also ill and accompany her as patient's during today's evaluation with upper respiratory infection symptoms. They have recently started daycare a week ago. Patient reports noticing a rash to palms and soles that Feels achy, she has 1 lesion in her mouth and reports feeling a sore throat and body aches. She has not used Motrin or Tylenol. She has not taken a COVID test. She denies cough, trouble breathing, abdominal symptoms. Review of Systems Constitutional: reports: Myalgias. denies: Fever Nose: denies: Congestion Throat: reports: Sore throat Cardiac: denies: Chest pain / pressure, Palpitations Respiratory: denies: Dyspnea GI: denies: Abdominal Pain, Vomiting : denies: Dysuria Skin: reports: Rash Musculoskeletal: denies: Back pain Neurologic: denies: Headache PD PAST MEDICAL HISTORY - Past Medical History Past Medical History: No - Past Surgical History Past Surgical History: No - Allergies Allergies/Adverse Reactions: Allergies Allergy/AdvReac Type Severity Reaction Status Date / Time No Known Drug Allergies Allergy Verified 01/24/18 21:27 - Social History Does the pt smoke?: No Smoking Status: Never smoker Does the pt drink ETOH?: No Does the pt have substance abuse?: No - Immunizations Immunizations are current?: Yes - POLST Patient has POLST: No PD ED PE NORMAL - General General: Alert and oriented X 3, No acute distress, Well developed/nourished - HEENT HEENT: Atraumatic, PERRL, EOMI, Moist mucous membranes, Pharynx benign (No oral swelling or exudate) - Neck Neck: Supple, no meningeal sign - Cardiac Cardiac: RRR, No murmur, Strong equal pulses - Respiratory Respiratory: No respiratory distress, Clear bilaterally - Abdomen Abdomen: Normal bowel sounds, Soft, Non tender, Non distended - Derm Derm: Other (Maculopapular rash to bilateral palms, no vesicles,). No: No rash - Extremities Extremities: No edema - Neuro Neuro: Normal speech - Psych Psych: Normal mood PD ED PE EXPANDED - HEENT HEENT Visual: 1 - deformity (Shallow ulceration) Results - Vitals Vitals: Vital Signs - 24 hr 12/20/21 12/21/21 22:46 02:19 Temperature 36.3 C L 36.5 C Heart Rate 94 80 Respiratory 16 16 Rate Blood Pressure 121/88 H 123/66 O2 Saturation 99 98 Oxygen O2 Source Room air - Labs Labs: Laboratory Tests 12/21/21 12/21/21 01:40 01:40 Nasal Adenovirus (PCR) NOT DETECTED Nasal B. parapertussis DNA (PCR) NOT DETECTED Nasal Coronavir 229E PCR NOT DETECTED Nasal Coronavir HKU1 PCR NOT DETECTED Nasal Coronavir NL63 PCR NOT DETECTED Nasal Coronavir OC43 PCR NOT DETECTED Nasal Enterovir/Rhinovir PCR DETECTED A Nasal Influenza B PCR NOT DETECTED Nasal Influenza A PCR NOT DETECTED Nasal Parainfluen 1 PCR NOT DETECTED Nasal Parainfluen 2 PCR NOT DETECTED Nasal Parainfluen 3 PCR NOT DETECTED Nasal Parainfluen 4 PCR NOT DETECTED Nasal RSV (PCR) NOT DETECTED Nasal B.pertussis DNA PCR NOT DETECTED Nasal C.pneumoniae (PCR) NOT DETECTED [place] Human Metapneumo PCR NOT DETECTED Nasal M.pneumoniae (PCR) NOT DETECTED Nasal SARS-CoV-2 (PCR) NOT DETECTED Group A Strep Rapid Negative PD MEDICAL DECISION MAKING - ED course ED course: Patient presenting with body aches, sore throat and an abnormal rash. Suspect viral etiology as both daughters are with her as patient's and was seen earlier today also with viral illness. She is well-appearing, nontoxic.Concern for sgbi-[id number]-yrf-mouth disease given appearance of rash on hands and oral l esions seen.Strep test is negative. Respiratory panel is pending. Discussed continuing supportive care as well as strict return precautions. Vital signs stable. Departure - Departure Disposition: 01 Home, Self Care Clinical Impression: Hand, foot and mouth disease Condition: Stable Instructions: ED Hand Foot Mouth Disease Ch Comments: You were evaluated for sore throat, abnormal rash and body aches. Based on the appearance of the rash I believe you have hand-foot mouth Disease. While more common in children, adults can get this and it is highly contagious. It is caused by a virus. Treatment is supportive and consists of Motrin or Tylenol as needed for fever or pain, hydration and rest. I would expect it to get better in the next 7 to 10 days. We have also done a strep swab which is negative. We will send the swab for culture. Respiratory panel is also pending which checks for COVID, influenza and a number of other common cold strains. If you have any labored breathing, difficulty swallowing or any concerns return to the emergency department. You have a Covid test pending. You need to self quarantine until the result is done and negative. Do not leave your house. Do not get near anybody. The results should be done in 48 to 72 hours. We will call with a positive result, the fastest way to get a negative result for confirmation though is to go to the hospital website at [email or web address], click on the my [facility] tab and sign up for the patient portal. If any friends or family get sick and would like to have a Covid test done, but do not have signs or symptoms that would necessitate being hospitalized, there are multiple local options for Covid testing. [facility] keeps an updated list of testing and vaccination options at: [email or web address]. Discharge Date/Time: 12/21/21 02:19
[2021-12-21 02:20] VITALS: BP 123/66
[2021-12-21 03:37] LABS: B. PARAPERTUSSIS- RESP PCR PAN NOT DETECTED; B. PERTUSSIS- RESP PCR PANEL NOT DETECTED; C. PNEUMONIAE- RESP PCR PANEL NOT DETECTED; CORONAVIRUS 229E-RESP PCR NOT DETECTED; CORONAVIRUS HKU1-RESP PCR NOT DETECTED; CORONAVIRUS NL63-RESP PCR NOT DETECTED; CORONAVIRUS OC43-RESP PCR NOT DETECTED; HUMAN METAPNEUMOVIRUS NOT DETECTED; INFLUENZA A- RESP PCR PANEL NOT DETECTED; INFLUENZA B - RESP PCR PANEL NOT DETECTED; M. PNEUMONIAE- RESP PCR PANEL NOT DETECTED; PARAINFLUENZA VIRUS 1 NOT DETECTED; PARAINFLUENZA VIRUS 2 NOT DETECTED; PARAINFLUENZA VIRUS 3 NOT DETECTED; PARAINFLUENZA VIRUS 4 NOT DETECTED; RHINOVIRUS/ENTEROVIRUS DETECTED; RSV- RESP PCR PANEL NOT DETECTED; SARS-CoV-2 -RESP PCR PANEL NOT DETECTED
== END 2021-12-21 02:19 | disposition home or self-care (01) ==
LOC: ED 22:27
DX: B08.4 Enteroviral vesicular stomatitis with exanthem (principal); Z20.822 Contact with and (suspected) exposure to COVID-19
CPT/HCPCS: 87070; 87430; 87633; 99282; 99283

== ENCOUNTER 2023-02-24 08:00 | Outpatient (CLI) | payer OTHER ==
[2023-02-24 16:23] LABS: BILIRUBIN,URINE NEGATIVE (NEGATIVE); GLUCOSE, URINE (UA) NEGATIVE (NEGATIVE); KETONES,URINE (UA) NEGATIVE (NEGATIVE); LEUKOCYTE ESTERASE, URINE TRACE (NEGATIVE); NITRITE,URINE NEGATIVE (NEGATIVE); OCCULT BLOOD,URINE NEGATIVE (NEGATIVE); PH,URINE 6.5 PH (5.0-7.5); PROTEIN,URINE NEGATIVE (NEGATIVE); UROBILINOGEN,URINE 0.2 (NORMAL) E.U./dL (NORMAL)
[2023-02-24 16:26] LABS: CLARITY,URINE CLEAR (CLEAR)
[2023-02-24 16:27] LABS: BACTERIA,URINE None Seen /HPF (None Seen); RBC,URINE 0-5 /HPF (0-5); SQUAMOUS EPITHELIAL CELL,UR RARE Squamous (<= Few); WBC,URINE 0-3 /HPF (0-5)
== END 2023-02-24 23:59 | disposition home or self-care (01) ==
LOC: LAB.WC 08:00
PROVIDERS: ATTEND Nurse Practitioner
DX: Z34.90 Encounter for supervision of normal pregnancy, unspecified, unspecified trimester (principal)
CPT/HCPCS: 81001; 87086

== ENCOUNTER 2023-05-20 07:20 | Outpatient (CLI) | payer OTHER ==
--- NOTE | 2023-05-20 15:41 | Ultrasound Report ---
PROCEDURE: OB Detailed Eval INDICATIONS: SUPERVISION OF OUTSIDE/PRIOR DATING DATA: Last menstrual period (LMP): Unknown. LMP-based estimated date of delivery (ANDRE): Unknown. First dating scan (date and location): 03/03/2023. Estimated date of delivery (ANDRE) from first dating scan: 10/05/2023. The below data below was generated using the ultrasound ANDRE of 10/05/2023 TECHNIQUE: Real-time scanning was performed of the fetus, with image documentation and biometric measurements. COMPARISON: 03/03/2023 FINDINGS: General: A single living intrauterine gestation is present. Presentation: Vertex Placenta: Placental position is anterior, without previa. Amniotic fluid index: 12.3 cm, within normal limits for gestational age. heart rate: 143 beats per minute. Maternal cervical canal: 4.3 cm long; normal length is 2.5 cm or more. biometrics: Biparietal diameter: 4.7 cm 20 weeks 1 day 45th percentile Head circumference: 17.5 cm 20 weeks 0 days 31st percentile Abdominal circumference: 14.9 cm 20 weeks 1 day 44th percentile Femur length: 3.3 cm 20 weeks 1 day 38th percentile Estimated gestational age from initial scan: 20 weeks 2 days Composite gestational age from present scan: 20 weeks 1 day Estimated weight and percentile: 336 g 79th percentile Measurement variability in biometric dating: +/- 10 days from 12-20 weeks gestation, +/- 2 weeks from 20-30 weeks gestation, +/- 3 weeks at 30 weeks gestation or later. Anatomic survey: Neuro: Ventricles are normal at less than 10 mm. Cisterna magna is normal at 3-11 mm. Cerebellum i s normal in size and morphology. Nuchal skin fold: Normal at less than 6 mm between 14 and 20 weeks gestational age. Face: Nose and lips, facial profile are normal. Spine: No evidence for spina bifida. Heart: 4-chambered heart is present, with normal ventricular outflow tracts. Diaphragm: Diaphragm is intact. Stomach: Left-sided stomach is present. Kidneys: No hydronephrosis. Normal is less than 5 mm in 2nd trimester, less than 7 mm in 3rd trimester. Cord: 3 vessel cord has orthotopic insertion. Bladder: Normal in size. Extremities: All 4 extremities are visualized. IMPRESSION: Single live intrauterine with ultrasound gestational age of 20 weeks 1 day. Anatomy is within normal limits. Reviewed by: Arabella Gay MD on 05/20/2023 3:40 PM PST Approved by: Arabella Gay MD on 05/20/2023 3:40 PM PST Station ID: [id number]
== END 2023-05-20 07:21 | disposition home or self-care (01) ==
LOC: DI 07:20
PROVIDERS: ATTEND Obstetrics & Gynecology
DX: Z34.92 Encounter for supervision of normal pregnancy, unspecified, second trimester (principal)

== ENCOUNTER 2023-07-10 08:00 | Outpatient (CLI) | payer OTHER ==
[2023-07-10 19:05] LABS: BACTERIAL VAGINOSIS DNA NEGATIVE (NEGATIVE); CANDIDA GLABRATA DNA NEGATIVE (NEGATIVE); CANDIDA GROUP DNA POSITIVE (NEGATIVE); CANDIDA KRUSEI DNA NEGATIVE (NEGATIVE); TRICHOMONAS VAGINALIS DNA NEGATIVE (NEGATIVE)
== END 2023-07-10 23:59 | disposition home or self-care (01) ==
LOC: LAB.WC 08:00
PROVIDERS: ATTEND Nurse Practitioner
DX: N89.8 Other specified noninflammatory disorders of vagina (principal)
CPT/HCPCS: 81514

== ENCOUNTER 2023-07-11 06:20 | Emergency (ER) | payer OTHER ==
--- NOTE | 2023-07-11 07:53 | ED Physician Documentation ---
PD HPI URI - Stated complaint Stated Complaint: CONGESTION/CHILLS - Chief complaint Chief Complaint: General - History obtained from History obtained from: Patient - Additional information Additional information: Patient is a 38-year-old female who is approximately 27 weeks presenting for evaluation of body aches, fatigue, nonproductive cough since yesterday afternoon. Patient's 5-year-old daughter is here with similar symptoms. Patient's had similar symptoms earlier this week and was diagnosed with influenza A. Patient states she is feeling her baby move. No vaginal bleeding or discharge. No cramping.Her OB is [facility]. She denies any complications with this . She is taking prenatals. She reports associated nausea. Review of Systems Constitutional: reports: Myalgias Nose: reports: Congestion Respiratory: reports: Cough GI: reports: Nausea. denies: Abdominal Pain : denies: Dysuria PD PAST MEDICAL HISTORY - Past Surgical History Past Surgical History: No - Present Medications Home Medications: Ambulatory Orders Medication Instructions Recorded Confirmed Pnv No.95/Ferrous Fum/Folic AC 1 tab PO DAILY 07/11/23 07/11/23 [ Tablet] - Allergies Allergies/Adverse Reactions: Allergies Allergy/AdvReac Type Severity Reaction Status Date / Time No Known Drug Allergies Allergy Verified 07/11/23 06:41 - Social History Does the pt smoke?: No Smoking Status: Never smoker Does the pt drink ETOH?: No Does the pt have substance abuse?: No - Immunizations Immunizations are current?: Yes - POLST Patient has POLST: No PD ED PE NORMAL - General General: Alert and oriented X 3, No acute distress, Well developed/nourished - HEENT HEENT: Atraumatic, Moist mucous membranes, Pharynx benign - Neck Neck: Supple, no meningeal sign - Cardiac Cardiac: RRR, Strong equal pulses - Respiratory Respiratory: No respiratory distress, Clear bilaterally - Abdomen Abdomen: Normal bowel sounds, Soft, Non tender, Other (Gravid uterus above umbilicus) - Derm Derm: Warm and dry - Neuro Neuro: Normal speech Results - Vitals Vitals: Vital Signs - 24 hr 07/11/23 08:10 Temperature 37.1 C Heart Rate 81 Respiratory 16 Rate Blood Pressure 118/70 O2 Saturation 100 Oxygen O2 Source Room air - Labs Labs: Laboratory Tests 07/11/23 07:37 Nasal Adenovirus (PCR) NOT DETECTED Nasal B. parapertussis DNA (PCR) NOT DETECTED Nasal Coronavir 229E PCR NOT DETECTED Nasal Coronavir HKU1 PCR NOT DETECTED Nasal Coronavir NL63 PCR NOT DETECTED Nasal Coronavir OC43 PCR NOT DETECTED Nasal Enterovir/Rhinovir PCR NOT DETECTED Nasal Influ A H1 2009 PCR DETECTED A Nasal Influenza B PCR NOT DETECTED Nasal Parainfluen 1 PCR NOT DETECTED Nasal Parainfluen 2 PCR NOT DETECTED Nasal Parainfluen 3 PCR NOT DETECTED Nasal Parainfluen 4 PCR NOT DETECTED Nasal RSV (PCR) NOT DETECTED Nasal B.pertussis DNA PCR NOT DETECTED Nasal C.pneumoniae (PCR) NOT DETECTED [place] Human Metapneumo PCR NOT DETECTED Nasal M.pneumoniae (PCR) NOT DETECTED Nasal SARS-CoV-2 (PCR) NOT DETECTED PD Medical Decision Making - ED course ED course: Patient is a 38-year-old female who is approximately 27 weeks presenting for evaluation of flulike symptoms. She has known exposure in the household with her testing positive for flu earlier this week. Her daughter is also being evaluated here today with similar symptoms. I also suspect the flu in this patient. She is and heart tones are within Expected range.She has no symptoms to suggest precipitous labor. I discussed that her symptoms are likely related to influenza. Because she is , I did offer Tamiflu and explained that could be considered a high risk condition. I explained the risks and benefits of Tamiflu.She does not want to take this at this time. I encouraged her to reach out to her OB to discuss further as that may make her feel more comfortable. Respiratory swab was obtained at her request. She is counseled on continued supportive care as well as concerning symptoms to return for. Departure - Departure Disposition: 01 Home, Self Care Clinical Impression: Flu-like symptoms, at greater than 3 months gestation Condition: Stable Instructions: ED Flu Follow-Up: [facility] [Provider Group] Comments: Your respiratory panel is pending. This will check for COVID, influenza, RSV and a number of other common cold viruses. We will notify you if it is positive for COVID. Otherwise you can check the patient portal for your results. You should quarantine from others until you know your COVID result. Please continue with acetaminophen or ibuprofen as needed for fevers and body aches, plenty of fluids/hydration and rest. Return to the ER with any worsening symptoms such as difficulty breathing or vomiting. I did offer a medication called Tamiflu today which is indicated in patients that are . I would recommend reaching out to your OB today to discuss this medication further to see if you would then be comfortable in taking it. Forms: PCP List, Activity restrictions Discharge Date/Time: 07/11/23 08:20
[2023-07-11 08:15] VITALS: BP 118/70; O2SAT 100
[2023-07-11 08:44] LABS: B. PARAPERTUSSIS- RESP PCR PAN NOT DETECTED; B. PERTUSSIS- RESP PCR PANEL NOT DETECTED; C. PNEUMONIAE- RESP PCR PANEL NOT DETECTED; CORONAVIRUS 229E-RESP PCR NOT DETECTED; CORONAVIRUS HKU1-RESP PCR NOT DETECTED; CORONAVIRUS NL63-RESP PCR NOT DETECTED; CORONAVIRUS OC43-RESP PCR NOT DETECTED; HUMAN METAPNEUMOVIRUS NOT DETECTED; INFLUENZA A H1 2009- RESP PCR DETECTED; INFLUENZA B - RESP PCR PANEL NOT DETECTED; M. PNEUMONIAE- RESP PCR PANEL NOT DETECTED; PARAINFLUENZA VIRUS 1 NOT DETECTED; PARAINFLUENZA VIRUS 2 NOT DETECTED; PARAINFLUENZA VIRUS 3 NOT DETECTED; PARAINFLUENZA VIRUS 4 NOT DETECTED; RHINOVIRUS/ENTEROVIRUS NOT DETECTED; RSV- RESP PCR PANEL NOT DETECTED; SARS-CoV-2 -RESP PCR PANEL NOT DETECTED
== END 2023-07-11 08:20 | disposition home or self-care (01) ==
LOC: ED 06:20
DX: O26.892 Other specified pregnancy related conditions, second trimester (principal); R09.81 Nasal congestion; R05.9 Cough, unspecified; Z3A.27 27 weeks gestation of pregnancy
CPT/HCPCS: 87633; 99283

== ENCOUNTER 2023-07-17 08:05 | Outpatient (CLI) | payer OTHER ==
[2023-07-17 12:14] LABS: HCT - HEMATOCRIT 31.6 % (37.0-47.0); HGB - HEMOGLOBIN 10.2 g/dL (12.0-16.0); MEAN CORPUSCULAR HEMOGLOBIN 28.9 pg (27.0-31.0); MEAN CORPUSCULAR HGB CONC 32.3 g/dL (32.0-36.0); MEAN CORPUSCULAR VOLUME 89.5 fL (81.0-99.0); MEAN PLATELET VOLUME 10.5 fL (7.9-10.8); RED BLOOD COUNT 3.53 10^6/uL (4.20-5.40); RED CELL DISTRIBUTION WIDTH 13.1 % (12.0-15.0); WHITE BLOOD COUNT 10.5 x10^3/uL (4.8-10.8)
== END 2023-07-17 08:06 | disposition home or self-care (01) ==
LOC: LAB.N 08:05
PROVIDERS: ATTEND Obstetrics & Gynecology
DX: Z34.90 Encounter for supervision of normal pregnancy, unspecified, unspecified trimester (principal); Z36.89 Encounter for other specified antenatal screening
CPT/HCPCS: 36415; 82950; 85027

== ENCOUNTER 2023-07-24 08:20 | Outpatient (CLI) | payer OTHER ==
[2023-07-24 08:54] LABS: GTT GLUCOSE,FASTING 83 mg/dL (74-109)
== END 2023-07-24 08:21 | disposition home or self-care (01) ==
LOC: LAB 08:20
PROVIDERS: ATTEND Obstetrics & Gynecology
DX: O99.810 Abnormal glucose complicating pregnancy (principal)
CPT/HCPCS: 36415; 82951; 82952

== ENCOUNTER 2023-08-22 07:12 | Outpatient (CLI) | payer OTHER ==
[2023-08-22 07:33] VITALS: BP 98/72
[2023-08-22 08:13] LABS: BASOPHILS # (AUTO) 0.1 10^3/uL (0.0-0.1); BASOPHILS % (AUTO) 0.6 %; EOSINOPHILS # (AUTO) 0.2 10^3/uL (0.0-0.7); EOSINOPHILS % (AUTO) 1.7 %; HCT - HEMATOCRIT 34.2 % (37.0-47.0); HGB - HEMOGLOBIN 11.3 g/dL (12.0-16.0); LYMPHOCYTES # (AUTO) 1.6 10^3/uL (1.5-3.5); LYMPHOCYTES % (AUTO) 14.6 %; MEAN CORPUSCULAR HEMOGLOBIN 28.3 pg (27.0-31.0); MEAN CORPUSCULAR VOLUME 85.7 fL (81.0-99.0); MEAN PLATELET VOLUME 9.9 fL (7.9-10.8); MONOCYTES # (AUTO) 0.6 10^3/uL (0.0-1.0); MONOCYTES % (AUTO) 5.7 %; NEUTROPHILS % (AUTO) 75.5 %; PLT - PLATELET COUNT 227 10^3/uL (130-450); RED BLOOD COUNT 3.99 10^6/uL (4.20-5.40); RED CELL DISTRIBUTION WIDTH 13.5 % (12.0-15.0); WHITE BLOOD COUNT 10.6 x10^3/uL (4.8-10.8)
--- NOTE | 2023-08-22 08:29 | PROVIDER PROGRESS NOTE ---
- HPI Chief Complaint: GI symptoms Current : Vital Signs Temperature 97.9 F 08/22/23 07:25 Heart Rate 103 H 08/22/23 07:25 Respiratory Rate 16 08/22/23 07:25 Blood Pressure 98/72 08/22/23 07:25 Temperature 97.9 F 08/22/23 07:25 Heart Rate 103 H 08/22/23 07:25 Respiratory Rate 16 08/22/23 07:25 Blood Pressure 98/72 08/22/23 07:25 O2 Saturation If not protocol: Oxygen Flow, liters/minute - Procedures OB Procedure Performed: NST Diagnosis/Indication for NST: Other (false labor) - Plan Plan: Patient is a 38-year-old -0-0-2 at 33 weeks 5 days gestation presenting after an episode of diarrhea this morning. She has not had any since. She had some significant cramping around that time and is worried it was contractions. She also complains of recent discharge. She used [id number] Monistat for several days and for like it took care of symptoms but they returned. She also concerned that she may have lost her mucous plug. Physical Exam Constitutional: alert, no acute distress, well hydrated, well developed, well nourished, appropriate dress. Cardiovascular: Regular rate and rhythm. Respiratory: no respiratory distress. Abdomen: nondistended, nontender, no guarding. Psych: affect and mood appropriate, normal interaction, good eye contact. SVE: 0/0/-3 FHT: 135 bpm baseline, moderate variability, accelerations present, no decelerations. Reactive NST [place]: Quiescent Diarrhea -Discussed symptomatic management. Nonconstrictive urine. Likely not dehydrated. -Good hand hygiene and try not to spread to anyone else. If does not return, can have normal activity. False labor -Abdominal cramps likely from gastrointestinal issues rather than labor. Cervix is closed. Not aly on monitor.
[2023-08-22 09:13] LABS: BILIRUBIN,URINE NEGATIVE (NEGATIVE); GLUCOSE, URINE (UA) NEGATIVE (NEGATIVE); KETONES,URINE (UA) NEGATIVE (NEGATIVE); LEUKOCYTE ESTERASE, URINE MODERATE (NEGATIVE); NITRITE,URINE NEGATIVE (NEGATIVE); OCCULT BLOOD,URINE NEGATIVE (NEGATIVE); PH,URINE 6.5 PH (5.0-7.5); PROTEIN,URINE NEGATIVE (NEGATIVE); UROBILINOGEN,URINE 0.2 (NORMAL) E.U./dL (NORMAL)
[2023-08-22 09:16] LABS: CLARITY,URINE HAZY (CLEAR)
[2023-08-22 09:19] LABS: BACTERIA,URINE Few /HPF (None Seen); RBC,URINE 0-5 /HPF (0-5); SQUAMOUS EPITHELIAL CELL,UR MOD Squamous (<= Few)
[2023-08-22 10:54] LABS: BACTERIAL VAGINOSIS DNA NEGATIVE (NEGATIVE); CANDIDA GLABRATA DNA NEGATIVE (NEGATIVE); CANDIDA GROUP DNA POSITIVE (NEGATIVE); CANDIDA KRUSEI DNA NEGATIVE (NEGATIVE); TRICHOMONAS VAGINALIS DNA NEGATIVE (NEGATIVE)
== END 2023-08-22 09:15 | disposition home or self-care (01) ==
LOC: WFO 07:12 → FBP 07:14 → WFO 09:15
PROVIDERS: ATTEND Obstetrics & Gynecology
DX: O99.891 Other specified diseases and conditions complicating pregnancy (principal); O47.03 False labor before 37 completed weeks of gestation, third trimester; R19.7 Diarrhea, unspecified; Z3A.33 33 weeks gestation of pregnancy; R10.9 Unspecified abdominal pain
CPT/HCPCS: 36415; 59025; 81001; 81514; 85025; 87086; 99213; 99215

== ENCOUNTER 2023-09-08 09:06 | Outpatient (CLI) | payer OTHER ==
[2023-09-08 09:45] VITALS: O2SAT 99
[2023-09-08 10:18] VITALS: BP 135/73
--- NOTE | 2023-09-08 18:24 | PROCEDURE REPORT ---
- HPI Diagnosis/Indication for NST: Other (Advanced maternal age) Current EDU 10/05/23 Gestation 36 Weeks and 1 Days 3 Para 2 Vital Signs Temperature 98.2 F 09/08/23 09:27 Heart Rate 97 09/08/23 09:27 Respiratory Rate 16 09/08/23 09:27 Blood Pressure 112/78 09/08/23 09:27 O2 Saturation 99 09/08/23 09:27 Temperature 98.2 F 09/08/23 09:50 Heart Rate 89 09/08/23 09:50 Respiratory Rate 17 09/08/23 09:50 Blood Pressure 135/73 H 09/08/23 09:50 O2 Saturation 99 09/08/23 09:27 If not protocol: Oxygen Flow, liters/minute - NST Procedure NST Procedure Start Date 09/08/23 Start Time 09:19 Stop Time 09:45 Patient States Movement Yes - Results and Plan Plan: Patient is a 38-year-old -0-0-2 at 36 weeks 1 day gestation here for NST. NST Performed 09/08/2023 NST Read 09/08/2023 FHT: 135 bpm baseline, moderate variability, accelerations present, no decelerations. Reactive NST [address]: Quiescent Diagnosis 36 weeks gestation Advanced maternal age Continue with scheduled OB care
== END 2023-09-08 09:57 | disposition home or self-care (01) ==
LOC: WFO 09:06 → FBP 09:07 → WFO 09:57
PROVIDERS: ATTEND Obstetrics & Gynecology
DX: O09.523 Supervision of elderly multigravida, third trimester (principal); Z3A.36 36 weeks gestation of pregnancy
CPT/HCPCS: 59025

== ENCOUNTER 2023-09-11 08:00 | Outpatient (CLI) | payer OTHER | END 2023-09-11 23:59 | disposition home or self-care (01) | LOC: LAB.WC 08:00 | PROVIDERS: ATTEND Nurse Practitioner | DX: Z36.85 Encounter for antenatal screening for Streptococcus B (principal) | CPT/HCPCS: 87081; 87181; 87797 ==

== ENCOUNTER 2023-09-11 09:53 | Outpatient (CLI) | payer OTHER ==
[2023-09-11 10:16] VITALS: BP 137/77
--- NOTE | 2023-09-11 20:30 | PROCEDURE REPORT ---
- HPI Diagnosis/Indication for NST: Other (AMA) Current EDU 10/05/23 Gestation 36 Weeks and 4 Days 3 Para 2 Vital Signs Temperature 100.0 F 09/11/23 10:10 Heart Rate 107 H 09/11/23 10:10 Respiratory Rate 17 09/11/23 10:10 Blood Pressure 137/77 H 09/11/23 10:10 Temperature 100.0 F 09/11/23 10:10 Heart Rate 107 H 09/11/23 10:10 Respiratory Rate 17 09/11/23 10:10 Blood Pressure 137/77 H 09/11/23 10:10 O2 Saturation If not protocol: Oxygen Flow, liters/minute - NST Procedure NST Procedure Start Date 09/11/23 Start Time 10:07 Stop Time 10:36 Vibroacoustic Stimulation Used No Patient States Movement Yes - Results and Plan Findings/Impression: Reactive for of 32 weeks gestation or more. NST tracing contains at least two heart rate accelerations that are at least 15 beats per minute above the baseline rate and lasting at least 15 seconds from onset to return to baseline within a twenty minute period. reactive NST Plan: care as scheduled.
== END 2023-09-11 10:46 | disposition home or self-care (01) ==
LOC: WFO 09:53 → FBP 09:55 → WFO 10:46
PROVIDERS: ATTEND Obstetrics & Gynecology
DX: O09.523 Supervision of elderly multigravida, third trimester (principal); Z3A.36 36 weeks gestation of pregnancy
CPT/HCPCS: 59025

== ENCOUNTER 2023-09-11 10:48 | Outpatient (CLI) | payer OTHER ==
[2023-09-11 11:18] LABS: ALBUMIN 3.3 g/dL (3.2-5.5); ALBUMIN/GLOBULIN RATIO 1.1 (1.0-2.2); BILIRUBIN,TOTAL 0.3 mg/dL (0.2-1.0); CALCIUM 9.1 mg/dL (8.5-10.3); CREATININE 0.5 mg/dL (0.6-1.3); POTASSIUM 3.5 mmol/L (3.5-4.5); TOTAL PROTEIN 6.2 g/dL (6.4-8.9)
== END 2023-09-11 10:49 | disposition home or self-care (01) ==
LOC: LAB 10:48
PROVIDERS: ATTEND Nurse Practitioner
DX: L29.9 Pruritus, unspecified (principal)
CPT/HCPCS: 36415; 80053; 82542

== ENCOUNTER 2023-09-15 08:58 | Outpatient (CLI) | payer OTHER ==
[2023-09-15 09:55] VITALS: BP 121/80
--- NOTE | 2023-09-16 21:15 | PROCEDURE REPORT ---
- HPI Diagnosis/Indication for NST: Other (AMA) Current EDU 10/05/23 Gestation 37 Weeks and 1 Days 3 Para 2 Vital Signs Temperature 97.7 F 09/15/23 09:30 Heart Rate 96 09/15/23 09:30 Respiratory Rate 16 09/15/23 09:30 Blood Pressure 133/77 H 09/15/23 09:30 Temperature 97.7 F 09/15/23 09:30 Heart Rate 96 09/15/23 09:30 Respiratory Rate 16 09/15/23 09:30 Blood Pressure 121/80 09/15/23 09:52 O2 Saturation If not protocol: Oxygen Flow, liters/minute - NST Procedure NST Procedure Start Date 09/15/23 Start Time 09:20 Stop Time 09:45 Vibroacoustic Stimulation Used No Patient States Movement Yes - Results and Plan Findings/Impression: Reactive for of 32 weeks gestation or more. NST tracing contains at least two heart rate accelerations that are at least 15 beats per minute above the baseline rate and lasting at least 15 seconds from onset to return to baseline within a twenty minute period. Plan: care as scheduled.
== END 2023-09-15 10:00 | disposition home or self-care (01) ==
LOC: WFO 08:58 → FBP 09:01 → WFO 10:00
PROVIDERS: ATTEND Obstetrics & Gynecology
DX: O09.523 Supervision of elderly multigravida, third trimester (principal); Z3A.37 37 weeks gestation of pregnancy
CPT/HCPCS: 59025

== ENCOUNTER 2023-09-17 08:39 | Outpatient (CLI) | payer OTHER ==
--- NOTE | 2023-09-17 12:17 | Ultrasound Report ---
PROCEDURE: OB Limited INDICATIONS: SUPERVISION OF OUTSIDE/PRIOR DATING DATA: Last menstrual period (LMP): Unknown. LMP-based estimated date of delivery (ANDRE): Unknown. First dating scan (date and location): 03/03/2023. Estimated date of delivery (ANDRE) from first dating scan: 10/05/2023. The below data below was generated using the working ANDRE of 10/05/2023 TECHNIQUE: Real-time scanning was performed of the fetus, with image documentation. Endovaginal scanning: Not performed COMPARISON: 03/03/2023, 05/20/2023 FINDINGS: A single living intrauterine gestation is present. Presentation: Vertex Placenta: Placental position is anterior, without previa. Amniotic fluid index: 9.6 cm, normal for gestational age. heart rate: 133 beats per minutes. Maternal cervical canal: 4.2 cm long and is closed; normal length is 2.5 cm or more. Estimated gestational age from initial scan: 37 weeks, 3 days. IMPRESSION: 1. Single live intrauterine gestation with fetus in vertex presentation. heart rate is 133 bpm. 2. Normal EDUARDO at 9.6 cm. Largest pocket measures 3 cm in size. Reviewed by: Darius Campbell MD on 09/17/2023 12:16 PM PDT Approved by: Darius Campbell MD on 09/17/2023 12:16 PM PDT Station ID: [id number]
== END 2023-09-17 08:40 | disposition home or self-care (01) ==
LOC: DI 08:39
PROVIDERS: ATTEND Obstetrics & Gynecology
DX: O09.523 Supervision of elderly multigravida, third trimester (principal); Z3A.37 37 weeks gestation of pregnancy

== ENCOUNTER 2023-09-18 08:42 | Outpatient (CLI) | payer OTHER ==
[2023-09-18 09:45] VITALS: BP 117/72; O2SAT 98
--- NOTE | 2023-09-18 18:25 | PROCEDURE REPORT ---
- HPI Current EDU 10/05/23 Gestation 37 Weeks and 4 Days 3 Para 2 Vital Signs Temperature 98.1 F 09/18/23 09:10 Heart Rate 106 H 09/18/23 09:10 Respiratory Rate 16 09/18/23 09:10 Blood Pressure 117/72 09/18/23 09:10 O2 Saturation 98 09/18/23 09:10 Temperature 98.1 F 09/18/23 09:10 Heart Rate 106 H 09/18/23 09:10 Respiratory Rate 16 09/18/23 09:10 Blood Pressure 117/72 09/18/23 09:10 O2 Saturation 98 09/18/23 09:10 If not protocol: Oxygen Flow, liters/minute - NST Procedure NST Procedure Start Date 09/18/23 Start Time 08:50 Stop Time 09:10 Vibroacoustic Stimulation Used No Patient States Movement Yes - Results and Plan Plan: Patient is a 38-year-old -0-0-2 at 37 weeks gestation here for NST. NST Performed 09/18/2023 NST Read 09/18/2023 FHT: 130 bpm baseline, moderate variability, accelerations present, no decelerations. Reactive NST [place]: Quiescent Diagnosis 37 weeks gestation Advanced maternal age Continue with scheduled OB care
== END 2023-09-18 09:10 | disposition home or self-care (01) ==
LOC: WFO 08:42 → FBP 08:44 → WFO 09:10
PROVIDERS: ATTEND Obstetrics & Gynecology
DX: O09.523 Supervision of elderly multigravida, third trimester (principal); Z3A.37 37 weeks gestation of pregnancy
CPT/HCPCS: 59025

== ENCOUNTER 2023-09-22 09:05 | Outpatient (CLI) | payer OTHER ==
[2023-09-22 09:53] VITALS: BP 118/76
--- NOTE | 2023-09-22 14:04 | PROCEDURE REPORT ---
- HPI Current EDU 10/05/23 Gestation 38 Weeks and 1 Days 3 Para 2 Vital Signs Temperature 97.9 F 09/22/23 09:08 Heart Rate 97 09/22/23 09:08 Respiratory Rate 126 H 09/22/23 09:08 Blood Pressure 141/81 H 09/22/23 09:08 Temperature 97.9 F 09/22/23 09:22 Heart Rate 97 09/22/23 09:22 Respiratory Rate 16 09/22/23 09:22 Blood Pressure 118/76 09/22/23 09:43 O2 Saturation If not protocol: Oxygen Flow, liters/minute - NST Procedure NST Procedure Start Date 09/22/23 Start Time 09:15 Stop Time 09:40 Vibroacoustic Stimulation Used No Patient States Movement Yes - Results and Plan Plan: Patient is a 38-year-old -0-0-2 at 38 weeks 1 day gestation here for NST. NST Performed 09/22/2023 NST Read 09/22/2023 FHT: 120 bpm baseline, moderate variability, accelerations present, no decelerations. Reactive NST [place]: Quiescent Diagnosis 38 weeks gestation Advanced maternal age Continue with scheduled OB care
== END 2023-09-22 09:45 | disposition home or self-care (01) ==
LOC: WFO 09:05 → FBP 09:06 → WFO 09:45
PROVIDERS: ATTEND Obstetrics & Gynecology
DX: O09.523 Supervision of elderly multigravida, third trimester (principal); Z3A.38 38 weeks gestation of pregnancy
CPT/HCPCS: 59025

== ENCOUNTER 2023-09-24 09:02 | Outpatient (CLI) | payer OTHER ==
--- NOTE | 2023-09-24 12:49 | Ultrasound Report ---
PROCEDURE: OB Limited INDICATIONS: SUPERVISION OF OUTSIDE/PRIOR DATING DATA: Last menstrual period (LMP): Unknown. LMP-based estimated date of delivery (ANDRE): Not applicable. First dating scan (date and location): 03/03/2023. Estimated date of delivery (ANDRE) from first dating scan: 10/05/2023. The below data below was generated using the ultrasound ANDRE of 10/05/2023 TECHNIQUE: Real-time scanning was performed of the fetus, with image documentation. Endovaginal scanning: Not performed. COMPARISON: Ultrasound 09/17/2023, 05/20/2023. FINDINGS: A single living intrauterine gestation is present. Presentation: Vertex Placenta: Placental position is anterior, without previa. Amniotic fluid index: 8.4 cm, normal for gestational age. Largest pocket of 5.5 cm. heart rate: 150 beats per minutes. Maternal cervical canal: 3.8 cm long; normal length is 2.5 cm or more. Estimated gestational age from initial scan: 38 weeks 3 days. IMPRESSION: Single living intrauterine at 38 weeks 3 days, ANDRE of 10/05/2023. EDUARDO of 8.4 cm, within normal limits. Reviewed by: Anant Carlos MD on 09/24/2023 12:48 PM PDT Approved by: Anant Carlos MD on 09/24/2023 12:48 PM PDT Station ID: [id number]
== END 2023-09-24 09:03 | disposition home or self-care (01) ==
LOC: DI 09:02
PROVIDERS: ATTEND Obstetrics & Gynecology
DX: O09.523 Supervision of elderly multigravida, third trimester (principal); Z3A.38 38 weeks gestation of pregnancy

== ENCOUNTER 2023-09-25 09:05 | Outpatient (CLI) | payer OTHER ==
[2023-09-25 09:24] VITALS: BP 126/77
--- NOTE | 2023-09-25 09:45 | PROCEDURE REPORT ---
- HPI Diagnosis/Indication for NST: Other (AMA) Current EDU 10/05/23 Gestation 38 Weeks and 4 Days 3 Para 2 Vital Signs Temperature 98.0 F 09/25/23 09:13 Heart Rate 92 09/25/23 09:13 Respiratory Rate 17 09/25/23 09:13 Blood Pressure 126/77 09/25/23 09:13 Temperature 98.0 F 09/25/23 09:13 Heart Rate 92 09/25/23 09:13 Respiratory Rate 17 09/25/23 09:13 Blood Pressure 126/77 09/25/23 09:13 O2 Saturation If not protocol: Oxygen Flow, liters/minute - NST Procedure NST Procedure Start Date 09/25/23 Start Time 09:11 Stop Time 09:32 Vibroacoustic Stimulation Used No Patient States Movement Yes - Results and Plan Findings/Impression: Reactive for of 32 weeks gestation or more. NST tracing contains at least two heart rate accelerations that are at least 15 beats per minute above the baseline rate and lasting at least 15 seconds from onset to return to baseline within a twenty minute period. Plan: care as scheduled
== END 2023-09-25 09:40 | disposition home or self-care (01) ==
LOC: WFO 09:05 → FBP 09:06 → WFO 09:40
PROVIDERS: ATTEND Obstetrics & Gynecology
DX: O09.523 Supervision of elderly multigravida, third trimester (principal); Z3A.38 38 weeks gestation of pregnancy
CPT/HCPCS: 59025

== ENCOUNTER 2023-09-29 09:00 | Outpatient (CLI) | payer OTHER ==
[2023-09-29 09:27] VITALS: BP 127/72
--- NOTE | 2023-09-29 17:14 | PROCEDURE REPORT ---
- HPI Current EDU 10/05/23 Gestation 39 Weeks and 1 Days 3 Para 2 Vital Signs Temperature 98.6 F 09/29/23 09:22 Heart Rate 85 09/29/23 09:22 Respiratory Rate 18 09/29/23 09:22 Blood Pressure 127/72 09/29/23 09:22 Temperature 98.6 F 09/29/23 09:22 Heart Rate 85 09/29/23 09:22 Respiratory Rate 18 09/29/23 09:22 Blood Pressure 127/72 09/29/23 09:22 O2 Saturation If not protocol: Oxygen Flow, liters/minute - NST Procedure NST Procedure Start Date 09/29/23 Start Time 09:20 Stop Time 09:45 Vibroacoustic Stimulation Used No Patient States Movement Yes - Results and Plan Plan: Patient is a 38-year-old -0-0-2 at 39 weeks 1 day gestation here for NST. NST Performed 09/29/2023 NST Read 09/29/2023 FHT: 125 bpm baseline, moderate variability, accelerations present, no decelerations. Reactive NST [place]: Quiescent Diagnosis 39 weeks gestation Advanced maternal age Continue with scheduled OB care
== END 2023-09-29 10:05 | disposition home or self-care (01) ==
LOC: WFO 09:00 → FBP 09:16 → WFO 10:05
PROVIDERS: ATTEND Obstetrics & Gynecology
DX: O09.523 Supervision of elderly multigravida, third trimester (principal); Z3A.39 39 weeks gestation of pregnancy
CPT/HCPCS: 59025

== ENCOUNTER 2023-10-01 08:57 | Outpatient (CLI) | payer OTHER ==
--- NOTE | 2023-10-01 13:04 | Ultrasound Report ---
PROCEDURE: OB Limited INDICATIONS: SUPERVISION OF OUTSIDE/PRIOR DATING DATA: Last menstrual period (LMP): Unknown. LMP-based estimated date of delivery (ANDRE): N/A. First dating scan (date and location): 03/03/2023. Estimated date of delivery (ANDRE) from first dating scan: 10/05/2023. The below data below was generated using the ultrasound ANDRE of 10/05/2023 TECHNIQUE: Real-time scanning was performed of the fetus, with image documentation. Endovaginal scanning: Not performed COMPARISON: OB ultrasound 09/24/2023 FINDINGS: A single living intrauterine gestation is present. Presentation: Vertex Placenta: Placental position is anterior right, without previa. Amniotic fluid index: 8.9 cm, normal for gestational age. Single deepest vertical fluid pocket is 4.2 cm. heart rate: 143 beats per minutes. Maternal cervical canal: 4.4 cm long; normal length is 2.5 cm or more. Estimated gestational age from initial scan: 39 weeks 3 days. Nuchal cord x1 is noted. IMPRESSION: 1.Single live intrauterine at 39 weeks 3 days gestation with vertex position. 2.Amniotic fluid index is within normal limits at 8.9 cm. 3.Nuchal cord is noted. Reviewed by: Oziel Manjarrez MD on 10/01/2023 1:03 PM PDT Approved by: Oziel Manjarrez MD on 10/01/2023 1:03 PM PDT Station ID: [id number]
== END 2023-10-01 08:58 | disposition home or self-care (01) ==
LOC: DI 08:57
PROVIDERS: ATTEND Obstetrics & Gynecology
DX: O09.523 Supervision of elderly multigravida, third trimester (principal); Z3A.39 39 weeks gestation of pregnancy

== ENCOUNTER 2023-10-02 08:56 | Outpatient (CLI) | payer OTHER ==
[2023-10-02 09:09] VITALS: BP 125/60
--- NOTE | 2023-10-05 22:12 | PROCEDURE REPORT ---
- HPI Diagnosis/Indication for NST: Other (AMA) Current EDU 10/05/23 Gestation 39 Weeks and 4 Days 3 Para 2 Vital Signs Temperature 97.9 F 10/02/23 09:01 Heart Rate 90 10/02/23 09:01 Respiratory Rate 18 10/02/23 09:01 Blood Pressure 125/60 10/02/23 09:01 Temperature 97.9 F 10/02/23 09:01 Heart Rate 90 10/02/23 09:01 Respiratory Rate 18 10/02/23 09:01 Blood Pressure 125/60 10/02/23 09:01 O2 Saturation If not protocol: Oxygen Flow, liters/minute - NST Procedure NST Procedure Start Date 10/02/23 Start Time 09:03 Stop Time 09:23 Vibroacoustic Stimulation Used No Patient States Movement Yes - Results and Plan Findings/Impression: Reactive for of 32 weeks gestation or more. NST tracing contains at least two heart rate accelerations that are at least 15 beats per minute above the baseline rate and lasting at least 15 seconds from onset to return to baseline within a twenty minute period. Plan: care as scheduled.
== END 2023-10-02 09:45 | disposition home or self-care (01) ==
LOC: WFO 08:56 → FBP 08:57 → WFO 09:45
PROVIDERS: ATTEND Obstetrics & Gynecology
DX: O09.523 Supervision of elderly multigravida, third trimester (principal); Z3A.39 39 weeks gestation of pregnancy
CPT/HCPCS: 59025

== ENCOUNTER 2023-10-06 09:13 | Outpatient (CLI) | payer OTHER ==
[2023-10-06 09:27] VITALS: BP 120/77
--- NOTE | 2023-10-06 12:02 | PROCEDURE REPORT ---
- HPI Diagnosis/Indication for NST: Other (AMA) Current EDU 10/05/23 Gestation 40 Weeks and 1 Days 3 Para 2 Vital Signs Temperature 98.2 F 10/06/23 09:21 Heart Rate 93 10/06/23 09:21 Respiratory Rate 18 10/06/23 09:21 Temperature 98.2 F 10/06/23 09:21 Heart Rate 93 10/06/23 09:21 Respiratory Rate 18 10/06/23 09:21 Blood Pressure 120/77 10/06/23 09:24 O2 Saturation If not protocol: Oxygen Flow, liters/minute - NST Procedure NST Procedure Start Date 10/06/23 Start Time 09:19 Stop Time 09:40 Vibroacoustic Stimulation Used No Patient States Movement Yes EFM: 120s, moderate variability, positive 15x15 accelerations, no decelerations [place]: no contractions NST reactive/Cat 1 Performed and read 10/06/23 - Results and Plan Plan: 38yo at 40.1w presenting for scheduled NST for AMA - NST reactive - Follow up this week for IOL/delivery planning
== END 2023-10-06 09:45 | disposition home or self-care (01) ==
LOC: WFO 09:13 → FBP 09:15 → WFO 09:45
PROVIDERS: ATTEND Obstetrics & Gynecology
DX: O09.523 Supervision of elderly multigravida, third trimester (principal); Z3A.40 40 weeks gestation of pregnancy
CPT/HCPCS: 59025

== ENCOUNTER 2023-10-07 21:39 | Outpatient (CLI) | payer OTHER ==
[2023-10-08 00:46] VITALS: BP 122/68
--- NOTE | 2023-10-09 12:56 | PROCEDURE REPORT ---
- HPI Diagnosis/Indication for NST: Other (Labor assessment) Current EDU 10/05/23 Gestation 40 Weeks and 2 Days 3 Para 2 Vital Signs Temperature 98.1 F 10/07/23 22:27 Heart Rate 87 10/07/23 22:27 Respiratory Rate 17 10/07/23 22:27 Blood Pressure 128/75 10/07/23 22:27 Temperature 98.1 F 10/07/23 22:27 Heart Rate 80 10/08/23 00:20 Respiratory Rate 16 10/08/23 00:20 Blood Pressure 122/68 10/08/23 00:20 O2 Saturation If not protocol: Oxygen Flow, liters/minute - NST Procedure NST Procedure Start Date 10/07/23 Start Time 22:03 Stop Time 22:39 Vibroacoustic Stimulation Used No Patient States Movement Yes - Results and Plan Plan: Patient is a 38-year-old -0-0-2 at 40 weeks 2 days gestation here for NST. NST Performed 10/07/2023 NST Read 10/07/2023 FHT: 125 bpm baseline, moderate variability, accelerations present, no decelerations. Reactive NST [place]: 5-8 minutes Diagnosis 40 weeks gestation Latent labor Continue with scheduled OB care
== END 2023-10-08 00:20 | disposition home or self-care (01) ==
LOC: WFO 21:39 → FBP 21:45 → WFO 10-08 00:20
PROVIDERS: ATTEND Obstetrics & Gynecology
DX: O63.0 Prolonged first stage (of labor) (principal); Z3A.40 40 weeks gestation of pregnancy
CPT/HCPCS: 59025; 99215

== ENCOUNTER 2023-10-08 23:29 | Inpatient (IN) | payer OTHER ==
[2023-10-08] MEDS ORDERED: METHYLERGONOVINE 0.2 MG/ML VIAL IM PRN (23:38)
[2023-10-08] MEDS ORDERED: LACTATED RINGERS 1,000 ML IV PRN (23:38)
[2023-10-08] MEDS ORDERED: fentaNYL 100 MCG/2 ML VIAL IVP PRN (23:38)
[2023-10-08] MEDS ORDERED: miSOPROStoL 200 MCG TABLET BC PRN (23:38)
[2023-10-08] MEDS ORDERED: lidocaine 1% 20 ML MDV ID PRN (23:38)
[2023-10-08] MEDS ORDERED: TERBUTALINE 1 MG/ML VIAL SUBQ PRN (23:38)
[2023-10-08] MEDS ORDERED: NIFEdipine 10 MG CAPSULE PO PRN (23:38)
[2023-10-08] MEDS ORDERED: OXYTOCIN/SODIUM CHLORIDE 500 ML IV PRN (23:38)
[2023-10-08] MEDS ORDERED: hydrALAZINE INJ 20 MG/ML VIAL IVP PRN ×2 (23:38)
[2023-10-08] MEDS ORDERED: TRANEXAMIC ACID IN NACL 1,000 MG/100 ML BAG IV PRN (23:38)
[2023-10-08] MEDS ORDERED: miSOPROStoL 200 MCG TABLET PR PRN (23:38)
[2023-10-08] MEDS ORDERED: LABETALOL 20 MG/4 ML SYRINGE IVP PRN ×3 (23:38)
[2023-10-08] MEDS ORDERED: OXYTOCIN 10 UNIT/ML VIAL IM PRN (23:38)
[2023-10-08] MEDS ORDERED: CARBOPROST TROMETHAMINE 250 MCG/ML VIAL IM PRN (23:38)
[2023-10-08] MEDS ORDERED: ONDANSETRON 4 MG/2 ML VIAL IVP PRN (23:38)
[2023-10-08] MEDS ORDERED: LACTATED RINGERS 1,000 ML IV SCH (23:45)
[2023-10-08] MEDS ORDERED: OXYTOCIN/SODIUM CHLORIDE 500 ML IV SCH (23:45)
[2023-10-09 00:20] LABS: BASOPHILS # (AUTO) 0.1 10^3/uL (0.0-0.1); BASOPHILS % (AUTO) 0.4 %; EOSINOPHILS # (AUTO) 0.2 10^3/uL (0.0-0.7); EOSINOPHILS % (AUTO) 1.2 %; HCT - HEMATOCRIT 32.6 % (37.0-47.0); HGB - HEMOGLOBIN 10.2 g/dL (12.0-16.0); LYMPHOCYTES # (AUTO) 2.4 10^3/uL (1.5-3.5); LYMPHOCYTES % (AUTO) 17.3 %; MEAN CORPUSCULAR HEMOGLOBIN 26.3 pg (27.0-31.0); MEAN CORPUSCULAR HGB CONC 31.3 g/dL (32.0-36.0); MEAN PLATELET VOLUME 10.5 fL (7.9-10.8); MONOCYTES # (AUTO) 1.1 10^3/uL (0.0-1.0); MONOCYTES % (AUTO) 8.3 %; NEUTROPHILS # (AUTO) 9.7 10^3/uL (1.5-6.6); NEUTROPHILS % (AUTO) 71.3 %; PLT - PLATELET COUNT 277 10^3/uL (130-450); RED BLOOD COUNT 3.88 10^6/uL (4.20-5.40); WHITE BLOOD COUNT 13.6 x10^3/uL (4.8-10.8)
[2023-10-09] MEDS: AMPICILLIN 2 GM in SODIUM CHLORIDE 0.9% MINIBAG 100 ML IV ONE (00:29)
[2023-10-09] MEDS: SODIUM CHLORIDE FLUSH 0.9% 10 ML SYRINGE IVP PRN (00:30)
[2023-10-09] MEDS ORDERED: LACTATED RINGERS 1,000 ML IV SCH (02:25)
[2023-10-09] MEDS ORDERED: WITCH HAZEL/GLYCERIN 1 PAD TOP PRN (02:25)
[2023-10-09] MEDS ORDERED: AMPICILLIN 1 GM in SODIUM CHLORIDE 0.9% MINIBAG 100 ML IV SCH (04:00)
[2023-10-09] MEDS: ACETAMINOPHEN 500 MG TABLET PO SCH (10:12)
[2023-10-09] MEDS: IBUPROFEN 800 MG TABLET PO SCH (10:13)
[2023-10-09] MEDS: DOCUSATE SODIUM 100 MG CAPSULE PO SCH (10:14)
--- NOTE | 2023-10-09 11:13 | PHARMACY PROGRESS NOTE ---
- Best Possible Medication History Admit Date and Time: 10/08/23 0974 Processed by: Pharmacy Medication History completed: Yes Patient Interview: Completed As the person ultimately responsible for medication therapy, providers are able to order a medication from an existing home medication list in [facility] via the "Reconcile Routine" prior to Confirmation of that medication by intelligence support officer. Such practice is discouraged except when the physician, in their clinical alvaro gment, deems that a medical need exists for a medication without regard to previous use.
--- NOTE | 2023-10-09 17:23 | HISTORY & PHYSICAL EXAMINATION ---
Admit History - Care: positive: [facility] Risk/History: positive: Other (AMA) Complications This : positive: None Smoking Status: Never smoker - Mother's Labs GBS: positive: Group B Strep Positive - Other Maternal History Other Maternal History: presents with painful contractions. was 4 cm last check. admitted for labor. Allergies: No Known Allergies Medications: Meds Reviewed: Done amoxicillin 500 mg tablet (amoxicillin) Take 1 tablet by mouth every twelve h ours for 7 days ferrous sulfate 325 mg (65 mg iron) tablet,delayed release (DR/EC) (ferrous sulfate) 1 tablet once a day * Electric Breast Pump Use 1 device as directed as directed USE TO EXPRESS MILK ACCORDING TO BABY'S NEEDS Z39.1 ANDRE 10/05/2023 PRE- FORMULA ORAL TABLET ( [id number]) Take one tablet by mouth once a day; Route: ORAL Problems: Sinusitis, recurrent (ICD-473.9) (NIV85-U15.9) Pruritus (ICD-698.9) (BPC99-B23.9) Encounter for screening for Streptococcus B (JNK39-W88.85) Upper respiratory infection (URI) (ICD-465.9) (DKW44-T63.9) Supervision of elderly multigravida, third trimester (ICD-V23.82) (ICD10- O09.523) Abnormal glucose tolerance in (ICD-648.83) (GIN11-Y14.810) Sciatica (ICD-724.3) (MXS72-K35.30) Supervision of normal (ICD-V22.1) (VTJ46-S47.90) Past Surgical History: [place] teeth 2020 Cyst removal (neck & Lower back) Flowsheet View for Follow-up Visit Estimated weeks of gestation: 40 3/7 Weight: 189 Blood pressure: 122 / 74 Fundal height: 40 FHR: 145 Vaginal bleeding: no Vaginal discharge: no activity: yes Labor symptoms: no position: vertex Cx Dilation: 4 Cx Effacement: 50% Cx Station: -3 Taking vits? Y Smoking: n/a Next visit: P:ostpartum Comment: Has been aly a lot. Went to triage last night but was unchanged. Uncomfortable night and slept well. He is having trouble with childcare, so would like to proceed with induction. Scheduled for tomorrow morning at 0[address]. Will [address] [facility] if we can arrange it. Membrane sweep today. Labor precautions given.-JAW LMP: unknown ANDRE by LMP: unknown 03/03/2023 /9+1 Final ANDRE: 10/05/2023 FOB: [place] Children: 2 girls sex: it's a 3rd girl ANC c/b: 1. AMA -- declined cfDNA / ANS - counseled -NSTs/EDUARDO ordered. Pre- Weight:165.4 BMI: 26.79 Blood type: O + Antibody: Negative CBC: PLT 306 HCT 36.0 HGB 12.0 RUB: 28 VZV: Immune HBsAg: Negative HepC: NR RPR/AB-EIA: NR HIV: NR PAP: 05/2020 Normal, no abnormals GC/CT: 03/10 NEGATIVE HSV: denies self/partner Genetic testing: not interested Covid: Adduplex, initial set, declined current. Flu: given FAS: 05/20/2023 Placenta: Anterior Cord: 3VC EDUARDO: 12.3 EFW: 336g, 79%tile 50gm OGCT: 139 3HR GTT: F 83; 1hr 155; 2hr 113 ;3hr 86 TDAP: Given 07/10/2023 Breast Pump: Given 07/10/2023 3rd trimester CBC: 07/17/2023- H/H 10.2/31.6 plt 279 08/22/2023- H/H 11.2/34.2 plt 227 GBS: Positive Delivery plan: plan for natural, used nitrous oxide in past deliveries. Contraception: NO BTL, Considering Paragard, pamphlet given Gender ID Identifies as Female P: 2 T: 2 L: 2 LMP: EDC: 10/05/2023 EDC by Ultrasound: 12/15/2020 Height: 66 (10/03/2023 10:47:34 AM) Weight: 189 Weight (pre-): 165.4 (02/24/2023 9:04:48 AM) Gonnorhea: negative (06/02/2020 10:40:38 AM) Chlamydia: NEGATIVE (03/10/2023 9:45:00 AM) Group B: POSITIVE (09/11/2023 9:30:00 AM) US: 20W 1D (07/26/2020 10:53:04 AM) Blood Type: O+ (07/01/2017 11:10:51 AM) RH Type: Positive (07/01/2017 11:10:51 AM) Last Antibody Screen: negative (06/05/2020 10:40:31 AM) Feeding Breast pump given? Yes - HPI Current EDU 10/05/23 Gestation 40 Weeks and 4 Days 3 Vital Signs Temperature 98.2 F 10/08/23 23:56 Heart Rate 82 10/08/23 23:56 Respiratory Rate 20 10/08/23 23:56 Blood Pressure 130/81 H 10/08/23 23:56 Temperature 98.4 F 10/09/23 16:31 Heart Rate 90 10/09/23 16:31 Respiratory Rate 20 10/09/23 16:31 Blood Pressure 132/77 H 10/09/23 16:31 O2 Saturation 100 10/09/23 16:31 If not protocol: Oxygen Flow, liters/minute - NST Procedure NST Procedure Start Time 22:03 Stop Time 22:39 Meds/Allgy - Home Medications Home Medications: Ambulatory Orders Medication Instructions Recorded Confirmed Pnv No.95/Ferrous Fum/Folic AC 1 tab PO DAILY 07/11/23 10/09/23 [ Tablet] Ferrous Sulfate 325 mg PO DAILY 10/09/23 10/09/23 - Allergies Allergies/Adverse Reactions: Allergies Allergy/AdvReac Type Severity Reaction Status Date / Time No Known Drug Allergies Allergy Verified 07/11/23 06:41 Physical - Abdominal Exam Vital Signs: Temp Pulse Resp BP Pulse Ox O2 Flow Rate 98.4 F 90 20 132/77 H 100 10/09/23 16:31 10/09/23 16:31 10/09/23 16:31 10/09/23 16:31 10/09/23 16:31 Contraction Frequency (min/apart): 2 Contraction Intensity: positive: Moderate, Moderate to strong Uterine Resting Tone: positive: Soft - Monitoring Strip Review: positive: Category I - Presentation Presentation: positive: Vertex - Vaginal Exam Membranes: positive: Membranes intact Dilation (in cm): 9 Effacement (%): 100 Station: positive: 2 Plan for Labor - Plan For Labor I expect patient to be DC'd or transferred within 96 hours.: Yes Plan for Labor: active labor. using nitrous. Anticipate soon.
--- NOTE | 2023-10-09 17:28 | DELIVERY NOTE ---
Delivery Note - Labor Labor: positive: Spontaneous - Delivery Method Delivery Method: positive: Spontaneous vaginal delivery - Presentation Presentation: positive: Vertex - Nuchal Cord Nuchal Cord: positive: Present - Anesthetic Anesthetic Type: - Amniotic Fluid Description Amniotic Fluid Description: positive: Other (never really saw any fluid.) - Episiotomy Type Episiotomy Type: positive: None - Laceration Laceration: positive: Other (small perineal laceration not bleeding so not repaired. below vaginal opening.) - Delivery Outcome Delivery Outcome: positive: Livebirth - [place] : positive: Placed in direct skin contact with mother, Stimulated, Warmed sex: positive: Female - Cord Cord: positive: 3 vessels, Other ( very long, tangled around baby.) - Placenta Placenta: positive: Intact, Spontaneous - Estimated Blood Loss Estimated Blood Loss (in cc): 300 - Post Delivery Events Post Delivery Events: positive: No post delivery events - Delivery Comments (Free Text/Narrative) Delivery Comments (Free Text/Narrative): Patient presented in active labor at term. Ampicilin given for GBS prophylaxis. progressed spontaneously in her labor and then was 7cm and I was called to come in. She was shortly there after. leg was elevated and she pushed her baby out unmedicated other than nitrous. baby was placed on her abdomen and was dried and stimulated. Cord was long, quijano of tangled around baby. She requested I wait about 5 min to cut the cord. This was done. cord blood colle cted. Oxytocin infused in the IV. Placenta delivered with gentle traction. perineum examined and small laceration noted on the perineum below the vaginal opening. Not repaired as she was not bleeding and it layed closed quite nicely. no complications. baby was vigourous from time of and stayed with Amrita. weighed 7 lb 15 oz.
--- NOTE | 2023-10-10 08:21 | Discharge Plan ---
Discharge Plan Problem Reviewed?: Yes Disposition: Home, Self Care Condition: Good Diet: Regular Activity Restrictions: Additional Comments Instruction Topics: Vaginal After, Depression No Smoking: If you smoke, Please STOP! Call for help. Follow-up with: Anjelica Aldana MD [Primary Care Provider] - Conchis Hoang ARNP [Provider Admit Priv/Credential] -
--- NOTE | 2023-10-10 08:22 | DISCHARGE SUMMARY ---
Discharge Summary Admit Date: 10/08/23 Discharge Date: 10/10/23 Discharging Provider: Sancho Grier MD Code Status: Attempt Resuscitation Condition at Discharge: Good Discharge Disposition: 01 Home, Self Care - DIAGNOSES Admission Diagnoses: Term labor, GBS positive Discharge Diagnoses with Status of Each Condition: Same Status post spontaneous vaginal delivery - HPI History of Present Illness: Subjective Patient reports she is doing well. Lochia appropriate. Denies heavy bleeding. Ambulating. Pelvic and abdominal pain well-controlled. Tolerating oral intake. Diet: Regular. Voiding without difficulty. Passing flatus. Denies BM. Patient is bonding with baby in room Breast feeding going well. Denies feeling lightheaded, dizzy or excessively fatigued. Objective General: Alert, oriented, no apparent distress. Cardiovascular: Regular rate. Regular rhythm. Lungs: No increased work of breathing. Abdomen: Uterus firm. Below umbilicus. No guarding or rebound. Extremities: No pain on palpation. No cords palpated. Distal pulses intact. - HOSPITAL COURSE Hospital Course: Patient was admitted at 40 weeks gestation labor after membranes sweep. She was in active labor and delivered within a few hours. GBS was not treated adequately due to timing of delivery and less than 4 hours between arival and delivery. course was unremarkable and was discharged at day 1 after 36 hours of monitoring for GBS disease. - ALLERGIES Allergies/Adverse Reactions: Allergies Allergy/AdvReac Type Severity Reaction Status Date / Time No Known Drug Allergies Allergy Verified 07/11/23 06:41 - MEDICATIONS Home Medications: Ambulatory Orders Medication Instructions Recorded Confirmed Pnv No.95/Ferrous Fum/Folic AC 1 tab PO DAILY 07/11/23 10/09/23 [ Tablet] Ferrous Sulfate 325 mg PO DAILY 10/09/23 10/09/23 - LABS Result Diagrams: 10/09/23 00:05 - FOLLOW UP Follow Up: UGO Peralta in 1-2 weeks. - TIME SPENT Time Spent in Discharge (Minutes): 20
[2023-10-10 08:40] VITALS: BP 124/74; O2SAT 99
--- NOTE | 2023-10-10 15:11 | Labor Flowsheet ---
Labor Flowsheet Datetime Report Generated by CPN: 10/10/2023 15:10 Datetime: 10/10/2023 08:23 VITAL SIGNS NBP Sys/Kelin/Mean (mmHg): 124 : 74 : 84 Pulse: 86 Datetime: 10/09/2023 04:15 Stage of : Recovery Datetime: 10/09/2023 04:00 Respirations: 18 Datetime: 10/09/2023 03:45 PAIN Pain Scale: 2 Datetime: 10/09/2023 02:35 Pain Presence: None/Denies Datetime: 10/09/2023 02:25 Temperature (C): 36.7 Temperature Route: Oral Bedside Blood Glucose: 2 Datetime: 10/09/2023 02:16 STAGE 2 Pushing Progress: Descent with Pushing Datetime: 10/09/2023 02:14 VAGINAL EXAM Dilatation (cm): 10.0 Station: 1 Exam by: [email or web address] Membrane Status: Ruptured Membranes Rupture Method: Spontaneous Amniotic Fluid Color: Clear Amniotic Fluid Amount: Scant Vaginal Bleeding: None Cervix, Consistency: Soft Cervix, Position: Anterior Datetime: 10/09/2023 02:09 Effacement (%): 100 Datetime: 10/09/2023 02:07 UTERINE ACTIVITY Monitor Mode: External Monitor Interventions for UA: [place] Adjusted Frequency (min): 2-3 Quality: Strong Duration (sec): 50-70 Pattern: Normal: <= 5 Contractions in 10 Minutes Resting Tone (Palpate): Relaxed Pitocin Checklist: At Least 1 Acceleration of 15 bpm x 15 Seconds in 30 Minutes or Adequate Variabi lity ASSESSMENT A Monitor Mode: External US FHR Baseline Rate : 120 FHR Baseline Changes: Bradycardia Variability: Moderate 6-25 bpm Accelerations: 15X15 Decelerations: None Category: Category I Datetime: 10/09/2023 01:56 Monitor Interventions for FHR: Ultrasound Adjusted Pain Type: Cramping Pain Location: Abdomen Pain Relief Measures: Pain Medication Given PATIENT CARE Oxygen Method: Room Air LaborFlag: Labor Datetime: 10/09/2023 01:44 Headache: Denies COMMUNICATION Communication: Call/Page Placed to Provider; Call/Page Returned by Provider Notification Reason: Status Update Datetime: 10/09/2023 01:01 Pain Assessment Comments: nitrous given via face mask as requested. verbalizes understanding. Datetime: 10/09/2023 00:30 MEDICATIONS Antibiotics: Ampicillin IV 2 Gm Datetime: 10/08/2023 23:45 Pain Coping: Talking Through Contractions MATERNAL ASSESSMENT Level of Consciousness: Alert DTR's/Clonus: DTRs 2+; No Clonus Breath Sounds, Left: Clear and Equal Breath Sounds, Right: Clear and Equal Nausea/Vomiting: Denies RUQ Epigastric Pain: Denies Comfort Measures: Breathing/Relaxation I/O Interventions: Ice Chips Given; Clear Liquids Given ANESTHESIA Anesthesia Plans: None TEACHING Instructional Method: Verbal; Patient Instructed Plan of Care: Plan of Care Discussed Unit Routine: [place] to Room; Call [place]; Bed; Visiting Policy; Waiting Areas; Infant Security; Phon e/Cell Phone Use; Photography; Unit Personnel; Handwashing Labor/Induction: Labor Stages Pain Management: PRN Medications; Pain Scale/Goals; Comfort Measures Medications: Antibiotics Datetime: 10/08/2023 23:38 Presentation 'A': Cephalic Datetime: 10/07/2023 22:39 Patient Position/Activity: Walking Patient Care Comments: Patient up to ambulate Datetime: 09/18/2023 09:09 SpO2 (%): 99 Datetime: 09/11/2023 10:28 Membranes Ruptured Date/Time: 10/09/2023 02:15 Amniotic Fluid Odor: Normal
== END 2023-10-10 14:00 | disposition home or self-care (01) | DRG 807 ==
LOC: WFO 23:29 → FBP 23:32 → WFO 23:33 → FBP 23:34
PROVIDERS: ADMIT Obstetrics & Gynecology; ATTEND Obstetrics & Gynecology
PROC: 10E0XZZ Delivery of Products of Conception, External Approach (ICD-10-PCS; principal; 2023-10-10)
DX: O99.824 Streptococcus B carrier state complicating childbirth (principal); Z37.0 Single live birth; O48.0 Post-term pregnancy; Z3A.40 40 weeks gestation of pregnancy; O70.9 Perineal laceration during delivery, unspecified
CPT/HCPCS: 59025; 59409; 85025; 86850; 86900; 86901; 99215; A9270; J7120